=== PATIENT | male | born 1995 | race Two or more races ===

== ENCOUNTER 2019-01-13 11:54 | Inpatient (IN) | payer OTHER ==
--- NOTE | 2019-01-13 14:17 | HP ---
CIWA Score Nausea/Vomitin Muscle Tremors: 3 Anxiety: 2 Agitation: 2 Paroxysmal Sweats: 1-Minimal Palms Moist Orientation: 0-Oriented Tacttile Disturbances: 1-Very Mild Itch/Numbness Auditory Disturbances: 0-None Visual Disturbances: 0-None Headache: 2-Mild CIWA-Ar Total Score: 13 - Admission Criteria OASAS Guidelines: Admission for Medically Managed Detox: Requires at least one of the followin. CIWA greater than 12 2. Seizures within the past 24 hours 3. Delirium tremens within the past 24 hours 4. Hallucinations within the past 24 hours 5. Acute intervention needed for co occurring medical disorder 6. Acute intervention needed for co occurring psychiatric disorder 7. Severe withdrawal that cannot be handled at a lower level of care (continued vomiting, continued diarrhea, abnormal vital signs) requiring intravenous medication and/or fluids 8. Admission ROS [facility] - HPI Chief Complaint: i need help to stop drinking alcohol and marijuana Allergies/Adverse Reactions: Allergies Allergy/AdvReac Type Severity Reaction Status Date / Time latex Allergy Severe Swelling Verified 01/13/19 12:47 History of Present Illness: this 23 years old male with alcohol and marijuana dependence,seeking help to stop drinking,[place], syncope alcohol related abrasion of right knee ,right elbow denied seizure stated have been drinking heavy for last 4 to 5 days personality disorder did not take medication for 3 months never been in detox before asthma history of alap by pass surgery Exam Limitations: No Limitations - Ebola screening Have you traveled outside of the country in the last 21 days: No Have you had contact with anyone from an Ebola affected area: No - Review of Systems Constitutional: Loss of Appetite, Malaise, Night Sweats, Changes in sleep EENT: reports: Nose Congestion Respiratory: reports: No Symptoms reported, Other (asthma) Cardiac: reports: No Symptoms Reported GI: reports: Diarrhea, Nausea, Poor Appetite, Abdominal cramping : reports: No Symptoms Reported Musculoskeletal: reports: Back Pain, Muscle Pain Integumentary: reports: Dryness Neuro: reports: Headache, Tremors Endocrine: reports: No Symptoms Reported Hematology: reports: No Symptoms Reported Psychiatric: reports: No Sypmtoms Reported, Judgement Intact, Mood/Affect Appropiate, Orientated x3, other (personality disorder) Patient History - Patient Medical History Hx Anemia: No Hx Asthma: No Hx Chronic Obstructive Pulmonary Disease (COPD): No Hx Cancer: No Hx Cardiac Disorders: No Hx Congestive Heart Failure: No Hx Hypertension: No Hx Hypercholesterolemia: No Hx Pacemaker: No HX Cerebrovascular Accident: No Hx Seizures: No Hx Dementia: No Hx Diabetes: No Hx Gastrointestinal Disorders: No Hx Liver Disease: No Hx Genitourinary Disorders: No Hx Sexually Transmitted Disorders: No Hx Renal Disease (ESRD): No Hx Thyroid Disease: No Hx Human Immunodeficiency Virus (HIV): No (last 11/17 negative) Hx Hepatitis C: No Hx Depression: Yes (no med) Hx Suicide Attempt: No Hx Bipolar Disorder: No Hx Schizophrenia: No Other Medical History: ersonality disorder,no suicidal,no homicidal - Patient Surgical History Past Surgical History: Yes Hx Abdominal Surgery: Yes (lap 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/20/17) - PPD History Previous Implant?: Yes Documented Results: Negative w/o proof Implanted On Prior [facility] Admission?: No PPD to be Administered?: No - Smoking Cessation Smoking history: Never smoked - Substance & Tx. History Hx Alcohol Use: Yes Hx Substance Use: Yes Substance Use Type: Alcohol, Marijuana Hx Substance Use Treatment: No - Substances abused Alcohol Substance route: Oral Frequency: Daily Amount used: 1 bottle of vodka and 1 (12) pack of beer 16oz Age of first use: 22 Date of last use: 01/13/19 Marijuana/Hashish Substance route: Smoking Frequency: 1-3 times last 30 days Amount used: 25$ Age of first use: 19 Date of last use: 11/25/18 Family Disease History - Family Disease History Family Disease History: Heart Disease: Father (htn,), Other: Mother (alcohol, asthma) Admission Physical Exam S - Vital Signs Vital Signs: Vital Signs - 24 hr 01/13/19 01/13/19 12:41 14:05 Temperature 97.1 F L 97.1 F L Pulse Rate 88 88 Respiratory 16 16 Rate Blood Pressure 139/86 139/86 - Physical General Appearance: Yes: Moderate Distress, Tremorous, Irritable, Sweating, Anxious HEENTM: Yes: Normal ENT Inspection, DEVEN, Pharynx Normal Respiratory: Yes: Lungs Clear, Normal Breath Sounds, No Respiratory Distress Neck: Yes: Within Normal Limits, Supple, Trachea in good position Breast: Yes: Within Normal Limits Cardiology: Yes: Within Normal Limits, Regular Rhythm, Regular Rate, S1, S2 Abdominal: Yes: Within Normal Limits, Normal Bowel Sounds, Soft, Surgical Scar Genitourinary: Yes: Within Normal Limits Back: Yes: Muscle Spasm Musculoskeletal: Yes: Back pain, Muscle Pain Extremities: Yes: Tremors Neurological: Yes: community organizer II-XII NML intact, Alert, Motor Strength 5/5 Integumentary: Yes: Dry, Other (tattooes left forearm abrasion of right knee , right elbow) - Diagnostic (1) Alcohol dependence with uncomplicated withdrawal Current Visit: Yes Status: Acute (2) Syncope Current Visit: Yes Status: Acute (3) Abrasion of right elbow Current Visit: Yes Status: Acute (4) Abrasion of right knee Current Visit: Yes Status: Acute (5) Personality disorder Current Visit: Yes Status: Acute (6) History of gastric bypass Current Visit: Yes Status: Acute Cleared for Admission S - Detox or Rehab [facility] Level of Care: Medically Managed Detox Regimen/Protocol: Librium Breathalyzer - Breathalyzer Breathalyzer: 0 Urine Drug Screen - Test Device Lot number: [id number] Expiration date: 09/29/19 - Results Drug screen NEGATIVE: No Urine drug screen results: THC-Marijuana Inpatient Rehab Admission - Rehab Decision to Admit Inpatient rehab admission?: No
[2019-01-13] MEDS ORDERED: MAG HYDROX/AL HYDROX/SIMETH 30 ML UNIT-DOSE CUP PO PRN (14:31)
[2019-01-13] MEDS ORDERED: BISMUTH SUBSALICYLATE 262 MG/15 ML BTL PO PRN (14:31)
[2019-01-13] MEDS ORDERED: METHOCARBAMOL 500 MG TABLET PO PRN (14:31)
[2019-01-13] MEDS ORDERED: MAGNESIUM HYDROX 2400MG/30ML ORAL SUSPENSION 30 ML CUP PO PRN (14:31)
[2019-01-13] MEDS ORDERED: hydrOXYzine HCL 25 MG TABLET (FP) PO PRN (14:31)
[2019-01-13] MEDS ORDERED: MAGNESIUM CITRATE 300 ML BOTTLE PO PRN (14:31)
[2019-01-13] MEDS ORDERED: IBUPROFEN 400 MG TABLET (FP) PO PRN (14:31)
[2019-01-13] MEDS ORDERED: ACETAMINOPHEN 325 MG TABLET (FP) PO PRN ×2 (14:31)
[2019-01-13] MEDS ORDERED: MENTHOL/PHENOL 1 EACH UD MM PRN (14:31)
[2019-01-13] MEDS ORDERED: chlordiazePOXIDE HCL 10 MG CAPSULE PO PRN (14:31)
[2019-01-13 17:13] LABS: ALBUMIN 3.8 g/dl (3.4-5.0); BILIRUBIN,TOTAL 0.7 mg/dL (0.2-1); BLOOD UREA NITROGEN 9.6 mg/dL (7-18); CALCIUM 9.2 mg/dL (8.5-10.1); CREATININE 0.9 mg/dL (0.55-1.3); POTASSIUM 4.2 mmol/L (3.5-5.1); TOT PROT 7.4 g/dl (6.4-8.2)
[2019-01-13 17:21] LABS: HEMATOCRIT 46.1 % (35.4-49); HEMOGLOBIN 15.7 GM/dL (11.7-16.9); MCH 30.6 pg (25.7-33.7); MCHC 34.1 g/dl (32.0-35.9); MEAN CELL VOLUME 89.8 fl (80-96); PLATELET COUNT 293 K/MM3 (134-434); RBC 5.13 M/mm3 (4.00-5.60); WHITE BLOOD COUNT 5.4 K/mm3 (4.0-10.0)
[2019-01-13] MEDS: MELATONIN 5 MG TABLETS PO PRN (22:09)
[2019-01-13] MEDS: THIAMINE HCL 100 MG TABLET (FP) PO SCH (22:09)
[2019-01-13] MEDS: chlordiazePOXIDE HCL 25 MG CAPSULE PO SCH (22:09)
[2019-01-13] MEDS: BACITRACIN 15 GM TUBE TOPICAL OINTMENT TP SCH (22:11)
[2019-01-14] MEDS: chlordiazePOXIDE HCL 25 MG CAPSULE PO SCH ×3 (05:32→17:08)
[2019-01-14] MEDS ORDERED: chlordiazePOXIDE HCL 10 MG CAPSULE PO PRN (09:57)
[2019-01-14] MEDS: PRENATAL VITAMINS W/ FOLIC ACID TABLET (FP) PO SCH (10:08)
[2019-01-14] MEDS: BACITRACIN 15 GM TUBE TOPICAL OINTMENT TP SCH ×2 (10:08→22:29)
[2019-01-14] MEDS: RANITIDINE HCL 150 MG TABLET (FP) PO SCH ×2 (10:08→21:56)
--- NOTE | 2019-01-14 11:30 | EKG ---
Test Reason : Blood Pressure : / mmHG Vent. Rate : 057 BPM Atrial Rate : 057 BPM P-R Int : 164 ms QRS Dur : 092 ms QT Int : 382 ms P-R-T Axes : 059 063 053 degrees QTc Int : 371 ms SINUS BRADYCARDIA EARLY REPOLARIZATION NO PREVIOUS ECGS AVAILABLE Confirmed by MELLY GILMAN MD ([id number]) on 01/14/2019 11:29:52 AM Referred By: Confirmed By:MELLY GILMAN MD
--- NOTE | 2019-01-14 14:36 | CONSULT ---
[facility] Psychiatric Consult - Data Date of interview: 01/14/19 Admission source: [facility] Identifying data: First admission to [facility] for this 23 y/o Georgian- Marshallese male self-referred for detoxification (alcohol). Interviewed at [address] [place] [address]. Patient is single, no children, domiciled, unemployed and supported by relatives. Substance Abuse History: Confirmed by patient. Details in current [facility] report as follows : Smoking history: Never smoked. Substance & Tx. History. Hx Alcohol Use: Yes. Hx Substance Use: Yes. Substance Use Type: Alcohol, Marijuana. Hx Substance Use Treatment: No. - Substances abused. Alcohol. Substance route : Oral. Frequency: Daily. Amount used: 1 bottle of vodka and 1 (12) pack of beer 16oz. Age of first use: 22. Date of last use: 01/13/19. Marijuana/ Hashish. Substance route: Smoking. Frequency: 1-3 times last 30 days. Amount used: 25$. Age of first use: 19. Date of last use: 11/25/18 Medical History: Bronchial asthma, history of gastric bypass and herniorraphy ( 2017). Psychiatric History: No reported history of psychiatric hospitalizations. Patient states that he sees a psychiatrist, Dr Matthew, at a mental health clinic in the [place] for therapy + medication management (risperdal 0.5 mg/hs). Diagnosed with Mood Disorder NOS. Mr Benton reports that he has NOT taken his dose of risperdal for THREE months (does not wish to resume that medication during this hospital course). Denies history of suicide attempts. Physical/Sexual Abuse/Trauma History: No history of abuse. Additional Comment: Urine drug screen results: THC-Marijuana. Noted. Mental Status Exam - Mental Status Exam Alert and Oriented to: Time, Place, Person Cognitive Function: Good Patient Appearance: Well Groomed Mood: Hopeful, Euthymic Affect: Appropriate, Normal Range Patient Behavior: Appropriate, Cooperative Speech Pattern: Clear, Appropriate (austrian-fluent) Voice Loudness: Normal Thought Process: Intact, Goal Oriented Thought Disorder: Not Present Hallucinations: Denies Suicidal Ideation: Denies Homicidal Ideation: Denies Insight/Judgement: Poor Sleep: Well Appetite: Good Muscle strength/Tone: Normal Gait/Station: Normal Psychiatric Findings - Problem List ([place] 1, 2,3) (1) Alcohol dependence with uncomplicated withdrawal Current Visit: Yes Status: Acute (2) Marihuana dependence Current Visit: Yes Status: Chronic (3) Insomnia Current Visit: Yes Status: Chronic - Initial Treatment Plan Initial Treatment Plan: Psychoeducation. Sleep hygiene. Support. Detoxification. Insomnia is addressed with melatonin at bedtime. Side effects/ benefits discussed. Patient agrees with careplan. Mr Benton declines to resume risperdal. " I am planning to discuss the issue with my psychiatrist after my discharge from here." AA meetings. Counseling. Relapse prevention (MAT) revisited with the patient : expressed limited interest. Observation.
--- NOTE | 2019-01-14 16:41 | PN ---
S CIWA - CIWA Score Nausea/Vomitin (Stomach Cramping.) Muscle Tremors: None Anxiety: 4-Mod. Anxious/Guarded Agitation: 3 Paroxysmal Sweats: No Perspiration Orientation: 0-Oriented Tacttile Disturbances: 2-Mild Itch/Numbness/Burn Auditory Disturbances: 0-None Visual Disturbances: 0-None Headache: 2-Mild CIWA-Ar Total Score: 13 S Progress Note (SOAP) Subjective: Anxious, Stomach Discomfort, H/A. Objective: PATIENT A & O X 3, OBSERVED AMBULATING ON UNIT UNASSISTED. IN NO ACUTE DISTRESS. 01/14/19 16:42 Vital Signs Temperature 97.5 F L 01/14/19 13:32 Pulse Rate 84 01/14/19 13:32 Respiratory Rate 16 01/14/19 13:32 Blood Pressure 114/76 01/14/19 13:32 O2 Sat by Pulse Oximetry (%) Laboratory Tests 01/13/19 01/13/19 01/13/19 14:20 14:20 14:20 WBC 5.4 RBC 5.13 Hgb 15.7 Hct 46.1 MCV 89.8 MCH 30.6 MCHC 34.1 RDW 14.0 Plt Count 293 MPV 9.0 Sodium 139 Potassium 4.2 Chloride 101 Carbon Dioxide 30 Anion Gap 8 BUN 9.6 Creatinine 0.9 Est GFR (CKD-EPI)AfAm 141.01 Est GFR (CKD-EPI)NonAf 121.66 Random Glucose 67 L Calcium 9.2 Total Bilirubin 0.7 AST 28 ALT 25 Alkaline Phosphatase 160 H Total Protein 7.4 Albumin 3.8 RPR Titer Nonreactive HIV 1&2 Antibody Screen HIV P24 Antigen 01/13/19 14:20 WBC RBC Hgb Hct MCV MCH MCHC RDW Plt Count MPV Sodium Potassium Chloride Carbon Dioxide Anion Gap BUN Creatinine Est GFR (CKD-EPI)AfAm Est GFR (CKD-EPI)NonAf Random Glucose Calcium Total Bilirubin AST ALT Alkaline Phosphatase Total Protein Albumin RPR Titer HIV 1&2 Antibody Screen Cancelled HIV P24 Antigen Cancelled LABS NOTED. RESULTS OF DETOX ADMISSION QFT /TB AND OF HIV AB TESTS PENDING. 01/14/19 16:42 Assessment: 01/14/19 16:43 WITHDRAWAL SYMPTOMS. ELEVATED ALKALINE PHOSPHATASE LEVEL. 01/14/19 16:44 Plan: CONTINUE DETOX. INCREASE DAILY PO WATER INTAKE. ZANTAC PO FOR POSSIBLE ACID REFLUX CAUSING STOMACH DISCOMFORT.
[2019-01-14] MEDS: THIAMINE HCL 100 MG TABLET (FP) PO SCH (21:56)
[2019-01-14] MEDS: MELATONIN 5 MG TABLETS PO PRN (21:57)
[2019-01-15] MEDS ORDERED: chlordiazePOXIDE 5 MG CAPSULE PO SCH (05:00)
[2019-01-15] MEDS: chlordiazePOXIDE 5 MG CAPSULE PO SCH ×3 (05:26→22:21)
[2019-01-15] MEDS: RANITIDINE HCL 150 MG TABLET (FP) PO SCH ×2 (10:40→22:34)
[2019-01-15] MEDS: PRENATAL VITAMINS W/ FOLIC ACID TABLET (FP) PO SCH (10:40)
[2019-01-15] MEDS: BACITRACIN 15 GM TUBE TOPICAL OINTMENT TP SCH ×2 (10:41→22:20)
[2019-01-15] MEDS: SENNOSIDES/DOCUSATE COMBO (SENNA PLUS) TABLET (UD) PO SCH ×2 (13:37→22:20)
--- NOTE | 2019-01-15 15:47 | PN ---
[facility] CIWA - CIWA Score Nausea/Vomitin-No Nausea/No Vomiting Muscle Tremors: None Anxiety: 4-Mod. Anxious/Guarded Agitation: 3 Paroxysmal Sweats: No Perspiration Orientation: 0-Oriented Tacttile Disturbances: 1-Very Mild Itch/Numbness Auditory Disturbances: 0-None Visual Disturbances: 2-Mild Sensitivity Headache: 0-None Present CIWA-Ar Total Score: 10 S Progress Note (SOAP) Subjective: Constipation, Anxious, Restless. Patient Reports That Stomach Discomfort reported at time of yesterday's Daily AM Rounds assessment has subsided. Objective: PATIENT A & O X 3, OBSERVED AMBULATING ON UNIT UNASSISTED. IN NO ACUTE DISTRESS. 01/15/19 15:44 Vital Signs Temperature 97.7 F 01/15/19 09:49 Pulse Rate 75 01/15/19 09:49 Respiratory Rate 20 01/15/19 09:49 Blood Pressure 122/73 01/15/19 09:49 O2 Sat by Pulse Oximetry (%) Laboratory Tests 01/13/19 01/13/19 01/13/19 14:20 14:20 14:20 WBC 5.4 RBC 5.13 Hgb 15.7 Hct 46.1 MCV 89.8 MCH 30.6 MCHC 34.1 RDW 14.0 Plt Count 293 MPV 9.0 Sodium 139 Potassium 4.2 Chloride 101 Carbon Dioxide 30 Anion Gap 8 BUN 9.6 Creatinine 0.9 Est GFR (CKD-EPI)AfAm 141.01 Est GFR (CKD-EPI)NonAf 121.66 Random Glucose 67 L Calcium 9.2 Total Bilirubin 0.7 AST 28 ALT 25 Alkaline Phosphatase 160 H Total Protein 7.4 Albumin 3.8 RPR Titer Nonreactive HIV 1&2 Ag/Ab, 4th Gen HIV 1&2 Antibody Screen HIV P24 Antigen 01/13/19 01/14/19 14:20 10:00 WBC RBC Hgb Hct MCV MCH MCHC RDW Plt Count MPV Sodium Potassium Chloride Carbon Dioxide Anion Gap BUN Creatinine Est GFR (CKD-EPI)AfAm Est GFR (CKD-EPI)NonAf Random Glucose Calcium Total Bilirubin AST ALT Alkaline Phosphatase Total Protein Albumin RPR Titer HIV 1&2 Ag/Ab, 4th Gen Non reactive HIV 1&2 Antibody Screen Cancelled HIV P24 Antigen Cancelled LABS NOTED. RESULTS OF DETOX ADMISSION QFT /TB TEST PENDING. 01/15/19 15:45 Assessment: 01/15/19 15:44 WITHDRAWAL SYMPTOMS. ELEVATED ALKALINE PHOSPHATASE LEVEL. 01/15/19 15:46 Plan: CONTINUE DETOX. COLACE SENNA PO BID ORDERED FOR RELIEF OF CONSTIPATION (PATIENT REPORTS POOR EFFECT FROM MOM). INCREASE DAILY PO WATER INTAKE.
[2019-01-15] MEDS: MELATONIN 5 MG TABLETS PO PRN (22:21)
[2019-01-15] MEDS: THIAMINE HCL 100 MG TABLET (FP) PO SCH (22:21)
[2019-01-16] MEDS ORDERED: chlordiazePOXIDE HCL 10 MG CAPSULE PO PRN ×2
[2019-01-16] MEDS ORDERED: chlordiazePOXIDE HCL 10 MG CAPSULE PO SCH (05:00)
[2019-01-16] MEDS: chlordiazePOXIDE HCL 10 MG CAPSULE PO SCH ×3 (06:44→22:08)
[2019-01-16] MEDS: PRENATAL VITAMINS W/ FOLIC ACID TABLET (FP) PO SCH (10:11)
[2019-01-16] MEDS: SENNOSIDES/DOCUSATE COMBO (SENNA PLUS) TABLET (UD) PO SCH ×2 (10:12→22:08)
[2019-01-16] MEDS: BACITRACIN 15 GM TUBE TOPICAL OINTMENT TP SCH ×2 (10:12→22:08)
[2019-01-16] MEDS: RANITIDINE HCL 150 MG TABLET (FP) PO SCH ×2 (11:27→22:25)
--- NOTE | 2019-01-16 14:57 | PN ---
S CIWA - CIWA Score Nausea/Vomitin-No Nausea/No Vomiting Muscle Tremors: 2 Anxiety: 2 Agitation: 2 Paroxysmal Sweats: No Perspiration Orientation: 0-Oriented Tacttile Disturbances: 0-None Auditory Disturbances: 0-None Visual Disturbances: 0-None Headache: 0-None Present CIWA-Ar Total Score: 6 BHS Progress Note (SOAP) Subjective: 23 years old male admitted on 01/13/19 for acute alcohol withdrawal sx management doing well with librium detox regimen hesitating to discuss aftercare Objective: 01/16/19 14:58 Vital Signs Temperature 98.8 F 01/16/19 14:48 Pulse Rate 63 01/16/19 14:48 Respiratory Rate 16 01/16/19 14:48 Blood Pressure 117/66 01/16/19 14:48 O2 Sat by Pulse Oximetry (%) Laboratory Last Values WBC 5.4 K/mm3 (4.0-10.0) 01/13/19 14:20 RBC 5.13 M/mm3 (4.00-5.60) 01/13/19 14:20 Hgb 15.7 GM/dL (11.7-16.9) 01/13/19 14:20 Hct 46.1 % (35.4-49) 01/13/19 14:20 MCV 89.8 fl (80-96) 01/13/19 14:20 MCH 30.6 pg (25.7-33.7) 01/13/19 14:20 MCHC 34.1 g/dl (32.0-35.9) 01/13/19 14:20 RDW 14.0 % (11.9-15.9) 01/13/19 14:20 Plt Count 293 K/MM3 (134-434) 01/13/19 14:20 MPV 9.0 fl (7.5-11.1) 01/13/19 14:20 Sodium 139 mmol/L (136-145) 01/13/19 14:20 Potassium 4.2 mmol/L (3.5-5.1) 01/13/19 14:20 Chloride 101 mmol/L (98-107) 01/13/19 14:20 Carbon Dioxide 30 mmol/L (21-32) 01/13/19 14:20 Anion Gap 8 MMOL/L (8-16) 01/13/19 14:20 BUN 9.6 mg/dL (7-18) 01/13/19 14:20 Creatinine 0.9 mg/dL (0.55-1.3) 01/13/19 14:20 Est GFR (CKD-EPI)AfAm 141.01 01/13/19 14:20 Est GFR (CKD-EPI)NonAf 121.66 01/13/19 14:20 Random Glucose 67 mg/dL (74-106) L 01/13/19 14:20 Calcium 9.2 mg/dL (8.5-10.1) 01/13/19 14:20 Total Bilirubin 0.7 mg/dL (0.2-1) 01/13/19 14:20 AST 28 U/L (15-37) 01/13/19 14:20 ALT 25 U/L (13-61) 01/13/19 14:20 Alkaline Phosphatase 160 U/L (45-117) H 01/13/19 14:20 Total Protein 7.4 g/dl (6.4-8.2) 01/13/19 14:20 Albumin 3.8 g/dl (3.4-5.0) 01/13/19 14:20 RPR Titer Nonreactive (NONREACTIVE) 01/13/19 14:20 HIV 1&2 Ag/Ab, 4th Gen Non reactive (Non Reactive) 01/14/19 10:00 HIV 1&2 Antibody Screen Cancelled 01/13/19 14:20 HIV P24 Antigen Cancelled 01/13/19 14:20 lab noted Assessment: 01/16/19 14:58 alcohol withdrawal sx alert oriented x 3 01/16/19 14:59 social with peers in day room Plan: continue libirun detox regimen
[2019-01-16] MEDS: THIAMINE HCL 100 MG TABLET (FP) PO SCH (22:07)
[2019-01-16] MEDS: MELATONIN 5 MG TABLETS PO PRN (22:09)
[2019-01-17] MEDS ORDERED: chlordiazePOXIDE HCL 10 MG CAPSULE PO ONE ×2 (05:00)
[2019-01-17] MEDS: SENNOSIDES/DOCUSATE COMBO (SENNA PLUS) TABLET (UD) PO SCH (10:08)
[2019-01-17] MEDS: PRENATAL VITAMINS W/ FOLIC ACID TABLET (FP) PO SCH (10:08)
[2019-01-17] MEDS: BACITRACIN 15 GM TUBE TOPICAL OINTMENT TP SCH (10:08)
[2019-01-17] MEDS: RANITIDINE HCL 150 MG TABLET (FP) PO SCH (10:09)
--- NOTE | 2019-01-17 12:41 | DS ---
[facility] Detox Discharge Summary Admission Date: 01/13/19 Discharge Date: 01/17/19 - History Present History: Alcohol Dependence Additional Comments: 23 years old male admitted on 01/13/19 for acute alcohol withdrawal sx management doing well with librium detox regimen no complication through out the detox stay alert oriented x 3 S1S2 Regular clear lung bilaterally - Physical Exam Results Vital Signs: Vital Signs Temperature 98.1 F 01/17/19 09:07 Pulse Rate 91 H 01/17/19 09:07 Respiratory Rate 20 01/17/19 09:07 Blood Pressure 116/72 01/17/19 09:07 O2 Sat by Pulse Oximetry (%) Pertinent Admission Physical Exam Findings: alcohol withdrawal sx Laboratory Last Values WBC 5.4 K/mm3 (4.0-10.0) 01/13/19 14:20 RBC 5.13 M/mm3 (4.00-5.60) 01/13/19 14:20 Hgb 15.7 GM/dL (11.7-16.9) 01/13/19 14:20 Hct 46.1 % (35.4-49) 01/13/19 14:20 MCV 89.8 fl (80-96) 01/13/19 14:20 MCH 30.6 pg (25.7-33.7) 01/13/19 14:20 MCHC 34.1 g/dl (32.0-35.9) 01/13/19 14:20 RDW 14.0 % (11.9-15.9) 01/13/19 14:20 Plt Count 293 K/MM3 (134-434) 01/13/19 14:20 MPV 9.0 fl (7.5-11.1) 01/13/19 14:20 Sodium 139 mmol/L (136-145) 01/13/19 14:20 Potassium 4.2 mmol/L (3.5-5.1) 01/13/19 14:20 Chloride 101 mmol/L (98-107) 01/13/19 14:20 Carbon Dioxide 30 mmol/L (21-32) 01/13/19 14:20 Anion Gap 8 MMOL/L (8-16) 01/13/19 14:20 BUN 9.6 mg/dL (7-18) 01/13/19 14:20 Creatinine 0.9 mg/dL (0.55-1.3) 01/13/19 14:20 Est GFR (CKD-EPI)AfAm 141.01 01/13/19 14:20 Est GFR (CKD-EPI)NonAf 121.66 01/13/19 14:20 Random Glucose 67 mg/dL (74-106) L 01/13/19 14:20 Calcium 9.2 mg/dL (8.5-10.1) 01/13/19 14:20 Total Bilirubin 0.7 mg/dL (0.2-1) 01/13/19 14:20 AST 28 U/L (15-37) 01/13/19 14:20 ALT 25 U/L (13-61) 01/13/19 14:20 Alkaline Phosphatase 160 U/L (45-117) H 01/13/19 14:20 Total Protein 7.4 g/dl (6.4-8.2) 01/13/19 14:20 Albumin 3.8 g/dl (3.4-5.0) 01/13/19 14:20 RPR Titer Nonreactive (NONREACTIVE) 01/13/19 14:20 HIV 1&2 Ag/Ab, 4th Gen Non reactive (Non Reactive) 01/14/19 10:00 HIV 1&2 Antibody Screen Cancelled 01/13/19 14:20 HIV P24 Antigen Cancelled 01/13/19 14:20 lab noted - Treatment Hospital Course: Detox Protocol Followed, Detoxed Safely, Responded well, Discharged Condition Good, Rehab Referral Accepted Patient has Accepted [facility] - Medication Discharge Medications: Ambulatory Orders NK [No Known Home Medication] 01/13/19 Risperidone [Risperdal -] 1 mg PO DAILY 01/13/19 - Diagnosis (1) GERD (gastroesophageal reflux disease) Current Visit: Yes Status: Chronic Qualifiers: Esophagitis presence: without esophagitis Qualified Code(s): K21.9 - Gastro -esophageal reflux disease without esophagitis (2) Abrasion of skin Current Visit: Yes Status: Acute (3) Alcohol dependence with uncomplicated withdrawal Current Visit: Yes Status: Acute - AMA Did Patient Leave Against Medical Advice: No
[2019-01-17 17:11] LABS: PH,URINE 7.5 (5.0-8.0); URINE APPEARANCE CLEAR; URINE BILIRUBIN NEGATIVE (NEGATIVE); URINE COLOR YELLOW; URINE GLUCOSE (UA) NEGATIVE (NEGATIVE); URINE KETONE NEGATIVE (NEGATIVE); URINE LEUK ESTERASE NEGATIVE (NEGATIVE); URINE NITRITE NEGATIVE (NEGATIVE); URINE PROTEIN NEGATIVE (NEGATIVE)
[2019-01-17 17:28] VITALS: BP 113/69; PULSE 67; TEMP 97.3
== END 2019-01-17 18:10 | disposition other institution (70) | DRG 775 ==
LOC: YASAS 11:54 → Y3N 14:47
PROVIDERS: ADMIT Surgery; ATTEND Surgery
PROC: HZ2ZZZZ Detoxification Services for Substance Abuse Treatment (ICD-10-PCS; principal; 2019-01-13)
DX: F10.230 Alcohol dependence with withdrawal, uncomplicated (principal); F12.20 Cannabis dependence, uncomplicated; F60.9 Personality disorder, unspecified; K21.9 Gastro-esophageal reflux disease without esophagitis; R74.0 Nonspecific elevation of levels of transaminase and lactic acid dehydrogenase [LDH]; G47.00 Insomnia, unspecified; Z98.84 Bariatric surgery status
CPT/HCPCS: 36415; 80053; 81003; 85027; 86480; 86593; 87389; 93005; 93010

== ENCOUNTER 2019-01-17 18:14 | Inpatient (IN) | payer OTHER ==
--- NOTE | 2019-01-17 12:49 | HP ---
[facility] Rehab Assess/Revision - Admission History Admitted to Rehab from: [facility] Date of Admission to Rehab: 01/17/19 - Findings Detox History & Physical reviewed: Yes Concur with findings: Yes Comments/Additional Findings: transferred from detox to rehab admission as per protocol Inpatient Rehab Admission - Rehab Decision to Admit Inpatient rehab admission?: Yes - Initial Determination Are CD services needed?: Yes Free of communicable disease: Yes Not in need of hospitalization: Yes - Rehab Admission Criteria Previous failed treatment: Yes Poor recovery environment: Yes Comorbidities: Yes Lacks judgement: No Patient is meeting Inpatient Rehab admission criteria:: Yes
[~2019-01-17 18:14] MED LIST: ACETAMINOPHEN 325 MG TABLET (FP) PO PRN; LOPERAMIDE HCL 2 MG CAPSULE PO PRN; MAG HYDROX/AL HYDROX/SIMETH 30 ML UNIT-DOSE CUP PO PRN; MAGNESIUM CITRATE 300 ML BOTTLE PO PRN; MAGNESIUM HYDROX 2400MG/30ML ORAL SUSPENSION 30 ML CUP PO PRN; MENTHOL/PHENOL 1 EACH UD MM PRN; P-EPHED 60MG/TRIPROLIDI 2.5MG TABLET PO PRN; guaiFENesin 200 MG/10 ML 10 ML UNIT-DOSE CUPS PO PRN
[2019-01-17] MEDS: THIAMINE HCL 100 MG TABLET (FP) PO SCH (21:24)
[2019-01-17] MEDS: RANITIDINE HCL 150 MG TABLET (FP) PO SCH (21:24)
[2019-01-17] MEDS: MELATONIN 5 MG TABLETS PO PRN (21:25)
[2019-01-17] MEDS: BACITRACIN 15 GM TUBE TOPICAL OINTMENT TP SCH (22:09)
[2019-01-17] MEDS: SENNOSIDES/DOCUSATE COMBO (SENNA PLUS) TABLET (UD) PO SCH (22:10)
[2019-01-18] MEDS: BACITRACIN 15 GM TUBE TOPICAL OINTMENT TP SCH ×2 (09:48→21:32)
[2019-01-18] MEDS: PRENATAL VITAMINS W/ FOLIC ACID TABLET (FP) PO SCH (09:48)
[2019-01-18] MEDS: SENNOSIDES/DOCUSATE COMBO (SENNA PLUS) TABLET (UD) PO SCH ×2 (09:48→21:31)
[2019-01-18] MEDS: RANITIDINE HCL 150 MG TABLET (FP) PO SCH ×2 (09:48→21:30)
[2019-01-18] MEDS: THIAMINE HCL 100 MG TABLET (FP) PO SCH (21:30)
[2019-01-18] MEDS: MELATONIN 5 MG TABLETS PO PRN (21:30)
[2019-01-19] MEDS: RANITIDINE HCL 150 MG TABLET (FP) PO SCH ×2 (10:06→21:59)
[2019-01-19] MEDS: PRENATAL VITAMINS W/ FOLIC ACID TABLET (FP) PO SCH (10:06)
[2019-01-19] MEDS: BACITRACIN 15 GM TUBE TOPICAL OINTMENT TP SCH ×2 (10:06→21:59)
[2019-01-19] MEDS: SENNOSIDES/DOCUSATE COMBO (SENNA PLUS) TABLET (UD) PO SCH ×2 (10:06→21:59)
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
[2019-01-19] MEDS ORDERED: MELATONIN 5 MG TABLETS PO PRN (14:32)
[2019-01-19] MEDS: MELATONIN 5 MG TABLETS PO PRN (21:59)
[2019-01-19] MEDS: THIAMINE HCL 100 MG TABLET (FP) PO SCH (21:59)
[2019-01-20] MEDS: BACITRACIN 15 GM TUBE TOPICAL OINTMENT TP SCH ×2 (09:20→21:19)
[2019-01-20] MEDS: PRENATAL VITAMINS W/ FOLIC ACID TABLET (FP) PO SCH (09:20)
[2019-01-20] MEDS: SENNOSIDES/DOCUSATE COMBO (SENNA PLUS) TABLET (UD) PO SCH ×2 (09:20→22:06)
[2019-01-20] MEDS: RANITIDINE HCL 150 MG TABLET (FP) PO SCH ×2 (09:20→21:20)
[2019-01-20] MEDS: THIAMINE HCL 100 MG TABLET (FP) PO SCH (21:19)
[2019-01-20] MEDS: risperiDONE 0.5 MG TABLET (FP) PO SCH (21:20)
[2019-01-20] MEDS: MELATONIN 5 MG TABLETS PO PRN (21:22)
[2019-01-21] MEDS: PRENATAL VITAMINS W/ FOLIC ACID TABLET (FP) PO SCH (09:43)
[2019-01-21] MEDS: RANITIDINE HCL 150 MG TABLET (FP) PO SCH ×2 (09:43→21:40)
[2019-01-21] MEDS: BACITRACIN 15 GM TUBE TOPICAL OINTMENT TP SCH ×2 (09:44→21:41)
[2019-01-21] MEDS: SENNOSIDES/DOCUSATE COMBO (SENNA PLUS) TABLET (UD) PO SCH ×2 (09:44→21:41)
[2019-01-21] MEDS: THIAMINE HCL 100 MG TABLET (FP) PO SCH (21:40)
[2019-01-21] MEDS: risperiDONE 0.5 MG TABLET (FP) PO SCH (21:40)
[2019-01-21] MEDS: MELATONIN 5 MG TABLETS PO PRN (21:41)
[2019-01-22] MEDS: SENNOSIDES/DOCUSATE COMBO (SENNA PLUS) TABLET (UD) PO SCH ×2 (10:35→21:44)
[2019-01-22] MEDS: PRENATAL VITAMINS W/ FOLIC ACID TABLET (FP) PO SCH (10:35)
[2019-01-22] MEDS: BACITRACIN 15 GM TUBE TOPICAL OINTMENT TP SCH ×2 (10:35→21:43)
[2019-01-22] MEDS: RANITIDINE HCL 150 MG TABLET (FP) PO SCH ×2 (10:35→21:44)
[2019-01-22] MEDS: THIAMINE HCL 100 MG TABLET (FP) PO SCH (21:43)
[2019-01-22] MEDS: risperiDONE 0.5 MG TABLET (FP) PO SCH (21:44)
[2019-01-22] MEDS: MELATONIN 5 MG TABLETS PO PRN (21:44)
[2019-01-23] MEDS: BACITRACIN 15 GM TUBE TOPICAL OINTMENT TP SCH ×2 (09:46→21:43)
[2019-01-23] MEDS: SENNOSIDES/DOCUSATE COMBO (SENNA PLUS) TABLET (UD) PO SCH ×2 (09:46→21:42)
[2019-01-23] MEDS: PRENATAL VITAMINS W/ FOLIC ACID TABLET (FP) PO SCH (09:47)
[2019-01-23] MEDS: RANITIDINE HCL 150 MG TABLET (FP) PO SCH ×2 (09:47→22:46)
[2019-01-23] MEDS: MELATONIN 5 MG TABLETS PO PRN (21:41)
[2019-01-23] MEDS: risperiDONE 0.5 MG TABLET (FP) PO SCH (21:41)
[2019-01-23] MEDS: THIAMINE HCL 100 MG TABLET (FP) PO SCH (21:43)
[2019-01-24] MEDS ORDERED: PT OWN MED DRAWER 7, Y5N ONE (09:33)
[2019-01-24] MEDS: PRENATAL VITAMINS W/ FOLIC ACID TABLET (FP) PO SCH (10:00)
[2019-01-24] MEDS: SENNOSIDES/DOCUSATE COMBO (SENNA PLUS) TABLET (UD) PO SCH ×2 (10:00→21:33)
[2019-01-24] MEDS: BACITRACIN 15 GM TUBE TOPICAL OINTMENT TP SCH ×2 (10:01→21:34)
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
[2019-01-24] MEDS: RANITIDINE HCL 150 MG TABLET (FP) PO SCH ×2 (12:40→21:32)
[2019-01-24] MEDS: risperiDONE 0.5 MG TABLET (FP) PO SCH (21:32)
[2019-01-24] MEDS: MELATONIN 5 MG TABLETS PO PRN (21:32)
[2019-01-24] MEDS: THIAMINE HCL 100 MG TABLET (FP) PO SCH (21:32)
[2019-01-25] MEDS ORDERED: PT OWN MED DRAWER 7, Y5N ONE (08:40)
[2019-01-25] MEDS: BACITRACIN 15 GM TUBE TOPICAL OINTMENT TP SCH ×2 (09:42→21:37)
[2019-01-25] MEDS: RANITIDINE HCL 150 MG TABLET (FP) PO SCH ×2 (09:42→21:35)
[2019-01-25] MEDS: SENNOSIDES/DOCUSATE COMBO (SENNA PLUS) TABLET (UD) PO SCH ×2 (09:42→21:35)
[2019-01-25] MEDS: PRENATAL VITAMINS W/ FOLIC ACID TABLET (FP) PO SCH (09:42)
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
[2019-01-25] MEDS: risperiDONE 0.5 MG TABLET (FP) PO SCH (21:35)
[2019-01-25] MEDS: THIAMINE HCL 100 MG TABLET (FP) PO SCH (21:35)
[2019-01-25] MEDS: MELATONIN 5 MG TABLETS PO PRN (21:36)
[2019-01-26] MEDS: PRENATAL VITAMINS W/ FOLIC ACID TABLET (FP) PO SCH (10:02)
[2019-01-26] MEDS: BACITRACIN 15 GM TUBE TOPICAL OINTMENT TP SCH ×2 (10:02→22:35)
[2019-01-26] MEDS: RANITIDINE HCL 150 MG TABLET (FP) PO SCH ×2 (10:02→21:10)
[2019-01-26] MEDS: SENNOSIDES/DOCUSATE COMBO (SENNA PLUS) TABLET (UD) PO SCH ×2 (10:03→21:10)
--- NOTE | 2019-01-26 13:52 | PN ---
[facility] Progress Note Note: Patient complains sleeping poorly despite taking Melatonin 10 mg/hs. Requests to be ordered a stronger medication for sleep. Hypnotic properties of Belsomra discussed with patient and he agreed to try it
[2019-01-26] MEDS: THIAMINE HCL 100 MG TABLET (FP) PO SCH (21:10)
[2019-01-26] MEDS: SUVOREXANT 10 MG TABLET PO PRN (21:10)
[2019-01-26] MEDS: risperiDONE 0.5 MG TABLET (FP) PO SCH (21:10)
[2019-01-27] MEDS: PRENATAL VITAMINS W/ FOLIC ACID TABLET (FP) PO SCH (09:43)
[2019-01-27] MEDS: RANITIDINE HCL 150 MG TABLET (FP) PO SCH ×2 (09:43→21:43)
[2019-01-27] MEDS: SENNOSIDES/DOCUSATE COMBO (SENNA PLUS) TABLET (UD) PO SCH ×2 (09:44→21:43)
[2019-01-27] MEDS: BACITRACIN 15 GM TUBE TOPICAL OINTMENT TP SCH ×2 (09:44→21:44)
[2019-01-27] MEDS ORDERED: COLLOIDAL OATMEAL 1 BAR EACH TP PRN (14:33)
[2019-01-27] MEDS: risperiDONE 0.5 MG TABLET (FP) PO SCH (21:43)
[2019-01-27] MEDS: SUVOREXANT 10 MG TABLET PO PRN (21:43)
[2019-01-27] MEDS: THIAMINE HCL 100 MG TABLET (FP) PO SCH (21:44)
[2019-01-28] MEDS: RANITIDINE HCL 150 MG TABLET (FP) PO SCH ×2 (10:06→21:06)
[2019-01-28] MEDS: PRENATAL VITAMINS W/ FOLIC ACID TABLET (FP) PO SCH (10:06)
[2019-01-28] MEDS: SENNOSIDES/DOCUSATE COMBO (SENNA PLUS) TABLET (UD) PO SCH ×2 (10:06→21:06)
[2019-01-28] MEDS: BACITRACIN 15 GM TUBE TOPICAL OINTMENT TP SCH ×2 (10:08→21:06)
[2019-01-28] MEDS: THIAMINE HCL 100 MG TABLET (FP) PO SCH (21:06)
[2019-01-28] MEDS: risperiDONE 0.5 MG TABLET (FP) PO SCH (21:06)
[2019-01-28] MEDS: SUVOREXANT 10 MG TABLET PO PRN (21:09)
[2019-01-29] MEDS: RANITIDINE HCL 150 MG TABLET (FP) PO SCH ×2 (10:00→21:11)
[2019-01-29] MEDS: PRENATAL VITAMINS W/ FOLIC ACID TABLET (FP) PO SCH (10:00)
[2019-01-29] MEDS: BACITRACIN 15 GM TUBE TOPICAL OINTMENT TP SCH ×2 (10:00→21:10)
[2019-01-29] MEDS: SENNOSIDES/DOCUSATE COMBO (SENNA PLUS) TABLET (UD) PO SCH ×2 (10:00→21:10)
--- NOTE | 2019-01-29 17:31 | PN ---
[facility] Progress Note Note: Psychiatry Attending's note : Called to renew order for suvorexant. Chart reviewed. Patient is known to me. Dr Tran's note of 01/27/19 : appreciated. Medication confirmed as well tolerated + effective. Informed consent already secured. Resumed : belsomra 10 mg po hs prn.
[2019-01-29] MEDS: SUVOREXANT 10 MG TABLET PO PRN (21:10)
[2019-01-29] MEDS: risperiDONE 0.5 MG TABLET (FP) PO SCH (21:11)
[2019-01-29] MEDS: THIAMINE HCL 100 MG TABLET (FP) PO SCH (21:11)
[2019-01-29] MEDS ORDERED: SUVOREXANT 10 MG TABLET PO PRN (22:00)
[2019-01-30] MEDS: PRENATAL VITAMINS W/ FOLIC ACID TABLET (FP) PO SCH (10:05)
[2019-01-30] MEDS: RANITIDINE HCL 150 MG TABLET (FP) PO SCH ×2 (10:06→21:16)
[2019-01-30] MEDS: SENNOSIDES/DOCUSATE COMBO (SENNA PLUS) TABLET (UD) PO SCH ×2 (10:06→21:16)
[2019-01-30] MEDS: BACITRACIN 15 GM TUBE TOPICAL OINTMENT TP SCH ×2 (10:07→21:17)
[2019-01-30] MEDS ORDERED: PT OWN MED DRAWER 7, Y5N ONE (19:07)
[2019-01-30] MEDS: THIAMINE HCL 100 MG TABLET (FP) PO SCH (21:16)
[2019-01-30] MEDS: risperiDONE 0.5 MG TABLET (FP) PO SCH (21:16)
--- NOTE | 2019-01-30 22:19 | PN ---
[facility] Progress Note Note: Patient c/o insomnia. Psych note reviewed. Will continue Belsomra.
[2019-01-30] MEDS: SUVOREXANT 10 MG TABLET PO PRN (22:32)
[2019-01-31] MEDS: RANITIDINE HCL 150 MG TABLET (FP) PO SCH ×2 (09:55→21:09)
[2019-01-31] MEDS: PRENATAL VITAMINS W/ FOLIC ACID TABLET (FP) PO SCH (09:55)
[2019-01-31] MEDS: BACITRACIN 15 GM TUBE TOPICAL OINTMENT TP SCH ×2 (09:56→21:09)
[2019-01-31] MEDS: SENNOSIDES/DOCUSATE COMBO (SENNA PLUS) TABLET (UD) PO SCH ×2 (09:56→21:09)
--- NOTE | 2019-01-31 14:09 | PN ---
[facility] Progress Note Note: Patient is scheduled for discharge tomorrow. Script for 30 days supply of Risperdal 0.5 mg/hs will be electronically transmitted to [facility] at [id number] [address]
--- NOTE | 2019-01-31 15:44 | DS ---
[facility] Rehab Discharge Summary - [facility] Rehab Discharge Summary Admission Date: 01/17/19 Discharge Date: 02/01/19 - History Present History: Alcohol dependence, Cannabis dependence Pertinent Past History: this 23 years old male with alcohol and marijuana dependence, syncope alcohol related abrasion of right knee ,right elbow denied seizure asthma history of lap by pass surgery - Discharge Physical Exam Vital Signs: Vital Signs Temperature 97.6 F 01/31/19 06:32 Pulse Rate 64 01/31/19 06:32 Respiratory Rate 18 01/31/19 06:32 Blood Pressure 113/71 01/31/19 06:32 O2 Sat by Pulse Oximetry (%) Pertinent Admission Physical Exam Findings: - Physical General Appearance: No apparent distress HEENTM: DEVEN, Respiratory:Lungs Clear, Neck: Supple, Breast: Yes: Within Normal Limits Cardiology: S1, S2 Abdominal: +Bowel Sounds, Soft, Surgical Scar Musculoskeletal: full weight bearing, full ROM, steady gait Neurological: ladies underwear operator II-XII NML intact; Motor Strength 5/5 Integumentary: warm, dry, color consistent throughout trunk and extremities. - Treatment Discharge Condition: Outpatient referral accepted (Patient will go the the [facility].) Hospital Course: Patient was adherent to treatment plan and medication regimen. Patient was seen by psychiatric provider, had one to one meetings with his counselor. He had no significant medical problems while in rehab and has not prescriptions for home medications. - Medication Discharge Medications: Ambulatory Orders Risperidone [Risperdal -] 1 mg PO DAILY 01/13/19 Risperidone [Risperdal -] 0.5 mg PO HS #30 tablet 01/31/19 - Medication-Assisted Treatment (MAT) Medication-Assisted Treatment (MAT): No - Discharge Instructions Diet, activity, other medical instructions: Diet:as tolerated Activity: as tolerated Other medical instructions: Please follow up with aftercare referral to the [facility]. Please make an appointment with your psychiatrist , Dr. Soler. - Diagnosis (1) Alcohol dependence Current Visit: Yes Status: Chronic Qualifiers: Substance use status: uncomplicated Qualified Code(s): F10.20 - Alcohol dependence, uncomplicated (2) Cannabis dependence Current Visit: Yes Status: Chronic (3) Asthma Current Visit: Yes Status: Chronic Qualifiers: Asthma severity: mild Asthma persistence: intermittent Asthma complication type: uncomplicated Qualified Code(s): J45.20 - Mild intermittent asthma, uncomplicated - Follow-up Referral Minutes to complete discharge: 20 - AMA Did Patient Leave Against Medical Advice: No Additional Comments: Patient will seek aftercare at the [facility]. He will make an appointment with his psychiatrist.
[2019-01-31] MEDS: SUVOREXANT 10 MG TABLET PO PRN (21:09)
[2019-01-31] MEDS: THIAMINE HCL 100 MG TABLET (FP) PO SCH (21:09)
[2019-01-31] MEDS: risperiDONE 0.5 MG TABLET (FP) PO SCH (21:09)
[2019-02-01 06:26] VITALS: BP 112/70; PULSE 59; TEMP 98.2
== END 2019-02-01 09:25 | disposition home or self-care (01) | DRG 772 ==
LOC: YASAS 18:14 → Y3W 18:17
PROVIDERS: ADMIT Neuromusculoskeletal Medicine & OMM; ATTEND Neuromusculoskeletal Medicine & OMM
PROC: HZ42ZZZ Group Counseling for Substance Abuse Treatment, Cognitive-Behavioral (ICD-10-PCS; principal; 2019-01-17)
DX: F10.20 Alcohol dependence, uncomplicated (principal); F12.20 Cannabis dependence, uncomplicated; F39 Unspecified mood [affective] disorder; F19.24 Other psychoactive substance dependence with psychoactive substance-induced mood disorder; F19.282 Other psychoactive substance dependence with psychoactive substance-induced sleep disorder; J45.20 Mild intermittent asthma, uncomplicated; S69.91XA Unspecified injury of right wrist, hand and finger(s), initial encounter; Y04.0XXA Assault by unarmed brawl or fight, initial encounter; W22.01XA Walked into wall, initial encounter; Y93.89 Activity, other specified; Y92.239 Unspecified place in hospital as the place of occurrence of the external cause; Z98.84 Bariatric surgery status
CPT/HCPCS: 73130-TC-RT-FY

== ENCOUNTER 2019-04-09 13:05 | Emergency (ER) | payer OTHER ==
[2019-04-09 13:15] VITALS: TEMP 98.1; BMI 30.4
[2019-04-09 14:27] LABS: BASO % 0.3 % (0-2.0); EOS % 2.7 % (0-4.5); HEMATOCRIT 45.5 % (35.4-49); HEMOGLOBIN 15.4 GM/dL (11.7-16.9); LYMPH % 39.4 % (8-40); MCH 30.5 pg (25.7-33.7); MCHC 33.9 g/dl (32.0-35.9); MEAN CELL VOLUME 89.9 fl (80-96); MEAN PLT VOLUME 8.5 fl (7.5-11.1); MONO % 4.4 % (3.8-10.2); NEUT % 53.2 % (42.8-82.8); PLATELET COUNT 259 K/MM3 (134-434); RBC 5.06 M/mm3 (4.00-5.60); RDW 13.6 % (11.9-15.9); WHITE BLOOD COUNT 7.1 K/mm3 (4.0-10.0)
--- NOTE | 2019-04-09 14:29 | PDOC ---
History of Present Illness - General Chief Complaint: Alcohol intoxication Stated Complaint: INTOX Time Seen by Provider: 04/09/19 13:15 - History of Present Illness Initial Comments: 04/09/19 14:23 23 yo M PMH asthma, alcohol use, marijuana use, p/w alcohol intoxication. Patient's sister called the ambulance because he was drunk. Patient reports drinking 5 beers this morning, denies any other substance use. Denies fall, LOC , trauma, N/V, fevers/chills, constipation/diarrhea. Past History - Past Medical History Allergies/Adverse Reactions: Allergies Allergy/AdvReac Type Severity Reaction Status Date / Time latex Allergy Severe Swelling Verified 04/09/19 13:06 Home Medications: Ambulatory Orders Risperidone [Risperdal -] 1 mg PO DAILY 01/13/19 Risperidone [Risperdal -] 0.5 mg PO HS #30 tablet 01/31/19 Anemia: No Asthma: No Cancer: No Cardiac Disorders: No CVA: No COPD: No CHF: No Dementia: No Diabetes: No GI Disorders: No Disorders: No HTN: No Hypercholesterolemia: No Kidney Stones: No Liver Disease: No Seizures: No Thyroid Disease: No - Surgical History Abdominal Surgery: Yes (lap 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/20/17) Appendectomy: No Cardiac Surgery: No Cholecystectomy: No Lung Surgery: No Neurologic Surgery: No Orthopedic Surgery: No - Reproductive History Testicular Surgery: No - Psycho Social/Smoking Cessation Hx Smoking History: Never smoked Have you smoked in the past 12 months: No Hx Alcohol Use: Yes Drug/Substance Use Hx: No Substance Use Type: Alcohol, Marijuana Hx Substance Use Treatment: No Review of Systems - Review of Systems Constitutional: No: Chills, Diaphoresis, Fever HEENTM: No: Blurred Vision, Recent change in vision, Double Vision, Tinnitus, Hearing Loss, Difficulty Swallowing Respiratory: No: Cough, Orthopnea, Shortness of Breath, Wheezing Cardiac (ROS): No: Chest Pain, Irregular Heart Rate, Lightheadedness, Palpitations, Syncope, Chest Tightness ABD/GI: No: Constipated, Diarrhea, Nausea, Vomiting : No: Burning, Dysuria, Discharge, Frequency, Flank Pain Musculoskeletal: No: Back Pain, Muscle Pain Neurological: No: Headache, Numbness, Tingling, Weakness *Physical Exam - Vital Signs Last Vital Signs Temp Pulse Resp BP Pulse Ox 98.1 F 125 H 18 123/73 100 04/09/19 13:11 04/09/19 13:11 04/09/19 13:11 04/09/19 13:11 04/09/19 13:11 - Physical Exam Comments: 04/09/19 14:27 Gen: well-developed, well-nourished, NAD Neuro: AAOX4, CN II-XII intact, FTN intact, EOMI, PERRLA, 5/5 strength, SILT HEENT: atraumatic, normocephalic, dry mucous membranes Neck: trachea midline, supple CV: tachycardic, regular rhythm, no murmurs, rubs, or gallops Pulm: CTA b/l, no wheezing Abd: soft, non-distended, non-tender MSK: full ROM, intact pulses Extr: no edema, no deformities Skin: warm, dry ED Treatment Course - LABORATORY CBC & Chemistry Diagram: 04/09/19 14:07 04/09/19 14:07 Medical Decision Making - Medical Decision Making 04/09/19 14:28 Patient orientated, clinically intoxicated. States that he would like detox. - CBC, CMP, alcohol - urine tox - [facility] 04/09/19 15:02 CBC, CMP wnl. 04/09/19 16:02 Alcohol 367.1. 04/09/19 17:08 U tox sent, will dc patient to [facility]. Discharge - Discharge Information Problems reviewed: Yes Clinical Impression/Diagnosis: Alcohol intoxication Disposition: HOME - Follow up/Referral - Patient Discharge Instructions Patient Printed Discharge Instructions: DI for Alcohol Abuse Additional Instructions: You were seen for alcohol intoxication. You expressed that you would like to enter detox. Please enter detox at [facility]. Follow up in the ED if you have worsening symptoms. - Post Discharge Activity
[2019-04-09 14:55] LABS: BILIRUBIN,TOTAL 0.3 mg/dL (0.2-1); BLOOD UREA NITROGEN 5.2 mg/dL (7-18); CALCIUM 8.3 mg/dL (8.5-10.1); CREATININE 0.9 mg/dL (0.55-1.3); POTASSIUM 3.8 mmol/L (3.5-5.1); TOT PROT 7.2 g/dl (6.4-8.2)
--- NOTE | 2019-04-09 15:25 | PDOC ---
Documentation entered by Arturo Saavedra SCRIBE, acting as scribe for Alexa Retana MD. Alexa Retana MD: This documentation has been prepared by the Keri nelson Xhesika, SCRIBE, under my direction and personally reviewed by me in its entirety. I confirm that the documentation accurately reflects all work, treatment, procedures, and medical decision making performed by me. Attending Attestation - Resident Resident Name: Arpit Salcido - ED Attending Attestation I have performed the following: I have examined & evaluated the patient, The case was reviewed & discussed with the resident, I agree w/resident's findings & plan, Exceptions are as noted - HPI HPI: 04/09/19 14:22 The patient is a 23 year old male with a significant PMH of asthma, alcohol use , marijuana use who presents to the emergency department for intoxication. Pt notes he had "5 beers" today, however, pt's sister called EMS because patient was extremely intoxicated. Patient notes he was in detox 1 week ago and was suppose to follow up with an outpatient detox center but never did. The patient denies chest pain, shortness of breath, headache and dizziness. Denies fever, chills, cough, nausea, vomiting, diarrhea and constipation. Denies dysuria, frequency, urgency and hematuria. Allergies: latex - Physicial Exam PE: 04/09/19 14:33 GENERAL: The patient is in no acute distress. HEAD: Normal with no signs of trauma. EYES: PERRLA, EOMI ENT: Moist mucous membranes. NECK: Normal range of motion, supple without midline tenderness to palpation LUNGS: Breath sounds equal, clear to auscultation bilaterally. No wheezes, and no crackles. HEART: Regular rate and rhythm, normal S1 and S2 without murmur, rub or gallop. ABDOMEN: Soft, nontender, normoactive bowel sounds. No guarding, no rebound. No masses palpable. EXTREMITIES: Normal range of motion NEUROLOGICAL: Cranial nerves II through XII grossly intact. Normal speech. MUSCULOSKELETAL: no deformities SKIN: No laceration, no bruising 04/09/19 15:01 - Medical Decision Making 04/09/19 15:21 23-year-old male presenting to the emergency department with a complaint of alcohol intoxication Patient sister called EMS Patient would like to go to the He has no complaints of trauma No external signs of injury We will do Basic labs Urine toxicology We will transfer to [facility] detox Patient is amatory with a steady gait 04/09/19 15:25 Laboratory Tests 04/09/19 04/09/19 14:07 14:07 WBC 7.1 Hgb 15.4 Hct 45.5 Plt Count 259 BUN 5.2 L Creatinine 0.9 04/09/19 15:56 Laboratory Tests 04/09/19 14:07 Alcohol, Quantitative 367.1 H Will observe for sobriety We will transfer to [facility] for detox
[2019-04-09 17:13] LABS: COCAINE, UR NEGATIVE ng/ml (CUTOFF=300); URINE AMPHETAMINES NEGATIVE ng/ml (CUTOFF=500); URINE BARBITURATES NEGATIVE ng/ml (CUTOFF=200); URINE BENZODIAZEPINES NEGATIVE ng/ml (CUTOFF=200)
[2019-04-09 17:14] LABS: METHADONE, UR NEGATIVE ng/ml (CUTOFF=300); OPIATES, URI NEGATIVE ng/ml (CUTOFF=300); PHENCYCLIDINE,URINE NEGATIVE ng/ml (CUTOFF=25)
[2019-04-09 17:28] VITALS: BP 130/88; PULSE 107
== END 2019-04-09 17:34 | disposition home or self-care (01) ==
LOC: JER 13:05
DX: F10.230 Alcohol dependence with withdrawal, uncomplicated (principal); Z91.040 Latex allergy status
CPT/HCPCS: 36415; 80053; 80307; 85025; 99283-25

== ENCOUNTER 2019-04-09 20:42 | Emergency (ER) | payer OTHER ==
[2019-04-09 20:59] VITALS: BMI 28.8
--- NOTE | 2019-04-09 21:02 | PDOC ---
History of Present Illness <Fernanda Joseph - Last Filed: 04/10/19 06:25> <Kobi Conte - Last Filed: 04/10/19 06:51> - General Chief Complaint: Alcohol intoxication Stated Complaint: ETOH INTOX Time Seen by Provider: 04/09/19 20:55 Past History <Fernanda Joseph - Last Filed: 04/10/19 06:25> - Past Medical History Anemia: No Asthma: No Cancer: No Cardiac Disorders: No CVA: No COPD: No CHF: No Dementia: No Diabetes: No GI Disorders: No Disorders: No HTN: No Hypercholesterolemia: No Kidney Stones: No Liver Disease: No Seizures: No Thyroid Disease: No - Surgical History Abdominal Surgery: Yes (lap 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/20/17) Appendectomy: No Cardiac Surgery: No Cholecystectomy: No Lung Surgery: No Neurologic Surgery: No Orthopedic Surgery: No - Reproductive History Testicular Surgery: No - Psycho Social/Smoking Cessation Hx Smoking History: Never smoked Have you smoked in the past 12 months: No Information on smoking cessation initiated: No Hx Alcohol Use: No Drug/Substance Use Hx: No Substance Use Type: Alcohol, Marijuana Hx Substance Use Treatment: No <Kobi Conte - Last Filed: 04/10/19 06:51> - Past Medical History Allergies/Adverse Reactions: Allergies Allergy/AdvReac Type Severity Reaction Status Date / Time latex Allergy Severe Swelling Verified 04/09/19 20:59 Home Medications: Ambulatory Orders NK [No Known Home Medication] 04/09/19 Review of Systems - Review of Systems Able to Perform ROS?: Yes Comments:: 04/10/19 06:48 ROS: GENERAL/CONSTITUTIONAL: No fever or chills. No weakness. HEAD, EYES, EARS, NOSE AND THROAT: No change in vision. No ear pain or discharge. No sore throat. CARDIOVASCULAR: No chest pain or shortness of breath RESPIRATORY: No cough, wheezing, or hemoptysis. GASTROINTESTINAL: No nausea, vomiting, diarrhea or constipation. GENITOURINARY: No dysuria, frequency, or change in urination. MUSCULOSKELETAL: No joint or muscle swelling or pain. No neck or back pain. SKIN: No rash NEUROLOGIC: No headache, vertigo, loss of consciousness, or change in strength/ sensation. ENDOCRINE: No increased thirst. No abnormal weight change HEMATOLOGIC/LYMPHATIC: No anemia, easy bleeding, or history of blood clots. ALLERGIC/IMMUNOLOGIC: No hives or skin allergy. <ChanasarahnyasiaKobi - Last Filed: 04/10/19 06:51> *Physical Exam - Vital Signs Last Vital Signs Temp Pulse Resp BP Pulse Ox 98.8 F 81 15 110/68 96 04/09/19 23:40 04/09/19 23:40 04/09/19 23:40 04/09/19 23:40 04/09/19 23:40 <JosephFernanda - Last Filed: 04/10/19 06:25> - Vital Signs Last Vital Signs Temp Pulse Resp BP Pulse Ox 98.1 F 86 18 156/88 100 04/09/19 20:54 04/09/19 20:54 04/09/19 20:54 04/09/19 20:54 04/09/19 20:54 - Physical Exam Comments: 04/10/19 06:49 PE: GENERAL: Awake, alert, and fully oriented, in no acute distress HEAD: No signs of trauma, normocephalic, atraumatic EYES: PERRLA, EOMI, sclera anicteric, conjunctiva clear ENT: Auricles normal inspection, hearing grossly normal, nares patent, oropharynx clear without exudates. Moist mucosa NECK: Normal ROM, supple, no lymphadenopathy, JVD, or masses LUNGS: No distress, speaks full sentences, clear to auscultation bilaterally HEART: Regular rate and rhythm, normal S1 and S2, no murmurs, rubs or gallops, peripheral pulses normal and equal bilaterally. ABDOMEN: Soft, nontender, normoactive bowel sounds. No guarding, no rebound. No masses EXTREMITIES : Normal inspection, Normal range of motion, no edema. No clubbing or cyanosis NEUROLOGICAL: Cranial nerves II through XII grossly intact. Normal speech, normal gait, no focal sensorimotor deficits SKIN: Warm, Dry, normal turgor, no rashes or lesions noted <ChanaKobi steven - Last Filed: 04/10/19 06:51> ED Treatment Course - Medications Given in the ED: ED Medications Discontinued Medications Generic Name Dose Route Start Last Admin Trade Name Freq PRN Reason Stop Dose Admin Chlordiazepoxide HCl 50 mg 04/09/19 21:22 04/09/19 21:25 Librium - PO 04/09/19 21:23 50 mg ONCE ONE Administration Lorazepam 2 mg 04/09/19 23:55 04/10/19 00:20 Ativan PO 04/09/19 23:56 2 mg ONCE ONE Administration <Fernanda Joseph - Last Filed: 04/10/19 06:25> Medical Decision Making - Medical Decision Making 04/10/19 06:49 23M hx EtOH use disorder, medically cleared today for [facility] detox, transferred back for concern for withdrawal, currently only endorsing anxiety, mild tremors. [facility] reporting scheduled discharges in AM. Plan: Librium 50 Observation in ED CIWA protocol as needed Dispo: Discharge in AM --- Endorsing ongoing anxiety, 2mg ativan ordered. --- On reassessment, sleeping comfortably. <Kobi Conte - Last Filed: 04/10/19 06:51> Discharge - Discharge Information Problems reviewed: Yes - Admission No <Fernanda Joseph - Last Filed: 04/10/19 06:25> - Discharge Information Problems reviewed: Yes - Admission No <Kobi Conte - Last Filed: 04/10/19 06:51> - Discharge Information Clinical Impression/Diagnosis: Alcohol dependence with uncomplicated withdrawal Condition: Improved Disposition: HOME - Patient Discharge Instructions Patient Printed Discharge Instructions: DI for Alcohol Abuse
[2019-04-09] MEDS ORDERED: chlordiazePOXIDE HCL 25 MG CAPSULE PO ONE (21:22)
[2019-04-09] MEDS ORDERED: chlordiazePOXIDE HCL 25 MG CAPSULE ONE (21:27)
--- NOTE | 2019-04-09 21:40 | PDOC ---
Documentation entered by Manasa Kraft SCRIBE, acting as scribe for Alexandro Palmer MD. Alexandro Palmer MD: This documentation has been prepared by the jaguaribeSwapnil Lincy, SCRIBE, under my direction and personally reviewed by me in its entirety. I confirm that the documentation accurately reflects all work, treatment, procedures, and medical decision making performed by me. Attending Attestation - Resident Resident Name: Kobi Conte - ED Attending Attestation I have performed the following: I have examined & evaluated the patient, The case was reviewed & discussed with the resident, I agree w/resident's findings & plan, Exceptions are as noted - HPI HPI: 04/09/19 21:28 The patient is a 23-year-old male, past medical history significant for Asthma, Etoh use, and Marijuana use who presents to the emergency department from [facility] for alcohol withdrawal. The patient was seen at the ER earlier today for alcohol intoxication and was discharged to [facility]. The patient was evaluated at [facility], however there was no bed available, so the patient was sent to the ER to monitor for alcohol withdrawal. - Physicial Exam PE: 04/10/19 01:17 Patient is awake and alert, well-nourished, mildly hypertensive and tremulous Normocephalic and atraumatic PERRLA, EOMI, no scleral icterus CTA RRR Mildly agitated, tremulous - Medical Decision Making 04/09/19 21:39 Patient is a 23-year-old male who was referred from particular detox for possible acute alcohol withdrawal. Patient was seen in this ER several hours previously for acute alcohol intoxication was cleared for inpatient detox. Due to lack of inpatient beds, patient was referred back to [facility]. In the ER, patient is mildly hypertensive, will administer Librium p.o. Will observe and discharged to [facility] when beds become available in the a.m. Complaining of insomnia.
[2019-04-09] MEDS ORDERED: LORazepam 2 MG TABLET PO ONE (23:55)
[2019-04-10] MEDS ORDERED: LORazepam 0.5 MG TABLET ONE (00:08)
[2019-04-10 06:39] VITALS: BP 143/90; PULSE 98; TEMP 98.1
== END 2019-04-10 06:49 | disposition home or self-care (01) ==
LOC: JER 20:42
DX: F10.230 Alcohol dependence with withdrawal, uncomplicated (principal); F41.9 Anxiety disorder, unspecified; Z91.040 Latex allergy status
CPT/HCPCS: 99282-25

== ENCOUNTER 2019-04-10 08:21 | Inpatient (IN) | payer OTHER ==
[2019-04-10 08:52] VITALS: BMI 29.5
--- NOTE | 2019-04-10 09:43 | HP ---
CIWA Score Nausea/Vomitin Muscle Tremors: 3 Anxiety: 3 Agitation: 3 Paroxysmal Sweats: No Perspiration Orientation: 0-Oriented Tacttile Disturbances: 1-Very Mild Itch/Numbness Auditory Disturbances: 0-None Visual Disturbances: 0-None Headache: 2-Mild CIWA-Ar Total Score: 14 - Admission Criteria OASAS Guidelines: Admission for Medically Managed Detox: Requires at least one of the followin. CIWA greater than 12 2. Seizures within the past 24 hours 3. Delirium tremens within the past 24 hours 4. Hallucinations within the past 24 hours 5. Acute intervention needed for co occurring medical disorder 6. Acute intervention needed for co occurring psychiatric disorder 7. Severe withdrawal that cannot be handled at a lower level of care (continued vomiting, continued diarrhea, abnormal vital signs) requiring intravenous medication and/or fluids 8. Admitting History and Physical - Smoking History Smoking history: Never smoked Have you smoked in the past 12 months: No - Alcohol/Substance Use Hx Alcohol Use: No Admission ROS BHS - HPI Chief Complaint: i need help to stop drinking alcohol, medically clear to return from er for detox Allergies/Adverse Reactions: Allergies Allergy/AdvReac Type Severity Reaction Status Date / Time latex Allergy Severe Swelling Verified 04/10/19 08:46 History of Present Illness: this 23 years old male with alcohol dependence,seeking help detox,withdrawal symptom, seen in er [facility] receiving librium and clear to return for detox had previous admissions in detox before last 01/13/19 to 01/17/19 nicotine dependence longest sobriety 2 years no sobriety plan for out patient program after detox history of personality and mood disorder lap 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/2017 Exam Limitations: No Limitations - Ebola screening Have you traveled outside of the country in the last 21 days: No (N) Have you had contact with anyone from an Ebola affected area: No - Review of Systems Constitutional: See HPI, Loss of Appetite, Night Sweats, Changes in sleep, Weakness EENT: reports: Tearing, Nose Congestion Respiratory: reports: No Symptoms reported Cardiac: reports: No Symptoms Reported GI: reports: Nausea, Poor Appetite, Abdominal cramping : reports: No Symptoms Reported Musculoskeletal: reports: Back Pain, Muscle Pain Integumentary: reports: Dryness Neuro: reports: Headache, Tremors Endocrine: reports: No Symptoms Reported Hematology: reports: No Symptoms Reported Psychiatric: reports: No Sypmtoms Reported, Judgement Intact, Mood/Affect Appropiate, Orientated x3, other (schizophrenia) Other Systems: Reviewed and Negative Patient History - Patient Medical History Hx Anemia: No Hx Asthma: No Hx Chronic Obstructive Pulmonary Disease (COPD): No Hx Cancer: No Hx Cardiac Disorders: No Hx Congestive Heart Failure: No Hx Hypertension: No Hx Hypercholesterolemia: No Hx Pacemaker: No HX Cerebrovascular Accident: No Hx Seizures: No Hx Dementia: No Hx Diabetes: No Hx Gastrointestinal Disorders: No Hx Liver Disease: No Hx Genitourinary Disorders: No Hx Sexually Transmitted Disorders: No Hx Renal Disease (ESRD): No Hx Thyroid Disease: No Hx Human Immunodeficiency Virus (HIV): No (last 11/17 negative) Hx Hepatitis C: No Hx Depression: Yes (no med) Hx Suicide Attempt: No Hx Bipolar Disorder: No Hx Schizophrenia: Yes (no med) Other Medical History: no suicidal,no homicidal - Patient Surgical History Past Surgical History: Yes Hx Neurologic Surgery: No Hx Cataract Extraction: No Hx Cardiac Surgery: No Hx Lung Surgery: No Hx Breast Surgery: No Hx Breast Biopsy: No Hx Abdominal Surgery: Yes (lap 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/20/17) Hx Appendectomy: No Hx Cholecystectomy: No Hx Genitourinary Surgery: No Hx Section: No Hx Orthopedic Surgery: No Anesthesia Reaction: No - PPD History Previous Implant?: Yes Documented Results: Negative w/o proof Implanted On Prior R Admission?: No PPD to be Administered?: Yes - Smoking Cessation Smoking history: Current every day smoker Have you smoked in the past 12 months: Yes Aproximately how many cigarettes per day: 6 Cigars Per Day: 0 Hx Chewing Tobacco Use: No Initiated information on smoking cessation: Yes 'Breaking Loose' booklet given: 04/10/19 - Substance & Tx. History Hx Alcohol Use: Yes Hx Substance Use: Yes Substance Use Type: Alcohol, Marijuana Hx Substance Use Treatment: Yes ([facility] 01/13/19 to 01/17/19) - Substances abused Alcohol Substance route: Oral Frequency: Daily Amount used: 1 bottle of vodka and 1 (12) pack of beer 16oz Age of first use: 22 Date of last use: 04/09/19 Marijuana/Hashish Substance route: Smoking Frequency: 1-3 times last 30 days Amount used: 25$ Age of first use: 19 Date of last use: 11/25/18 Admission Physical Exam [facility] - Vital Signs Vital Signs: Vital Signs - 24 hr 04/10/19 04/10/19 08:47 09:03 Temperature 98.5 F 98.5 F Pulse Rate 81 81 Respiratory 18 18 Rate Blood Pressure 152/97 152/97 - Physical General Appearance: Yes: Moderate Distress, Tremorous, Irritable, Sweating, Anxious HEENTM: Yes: Normal ENT Inspection, DEVEN, Pharynx Normal Respiratory: Yes: Lungs Clear, Normal Breath Sounds, No Respiratory Distress Neck: Yes: Within Normal Limits, Supple, Trachea in good position Breast: Yes: Within Normal Limits Cardiology: Yes: Within Normal Limits, Regular Rhythm, Regular Rate, S1, S2 Abdominal: Yes: Within Normal Limits, Normal Bowel Sounds, Non Tender, Soft Genitourinary: Yes: Within Normal Limits Back: Yes: Muscle Spasm Extremities: Yes: Tremors Neurological: Yes: return agent airport II-XII NML intact, Fully Oriented, Alert, Motor Strength 5/5 Integumentary: Yes: Dry Lymphatic: Yes: Within Normal Limits - Diagnostic (1) Alcohol dependence with uncomplicated withdrawal Current Visit: Yes Status: Acute (2) History of gastric bypass Current Visit: No Status: Acute (3) Personality disorder Current Visit: No Status: Acute (4) Asthma Current Visit: No Status: Chronic Qualifiers: Asthma severity: mild Asthma persistence: intermittent Asthma complication type: uncomplicated Qualified Code(s): J45.20 - Mild intermittent asthma, uncomplicated Cleared for Admission [facility] - Detox or Rehab [facility] Level of Care: Medically Managed Detox Regimen/Protocol: Librium Breathalyzer - Breathalyzer Breathalyzer: 0 Urine Drug Screen - Test Device Lot number: [id number] Expiration date: 12/29/20 - Control Is test valid?: Yes - Results Drug screen NEGATIVE: No Urine drug screen results: CATRACHITA-Cocaine, BZO-Benzodiazepines Inpatient Rehab Admission - Rehab Decision to Admit Inpatient rehab admission?: No
[2019-04-10] MEDS ORDERED: BISMUTH SUBSALICYLATE 524 MG/30 ML UD PO PRN (10:01)
[2019-04-10] MEDS ORDERED: hydrOXYzine PAMOATE 25 MG CAPSULE (FP) PO PRN (10:01)
[2019-04-10] MEDS ORDERED: MAGNESIUM HYDROX 2400MG/30ML ORAL SUSPENSION 30 ML CUP PO PRN (10:01)
[2019-04-10] MEDS ORDERED: ACETAMINOPHEN 325 MG TABLET (FP) PO PRN ×2 (10:01)
[2019-04-10] MEDS ORDERED: MENTHOL/PHENOL 1 EACH UD MM PRN (10:01)
[2019-04-10] MEDS ORDERED: IBUPROFEN 400 MG TABLET (FP) PO PRN (10:01)
[2019-04-10] MEDS ORDERED: NICOTINE POLACRILEX 2 MG GUM BUC PRN (10:01)
[2019-04-10] MEDS ORDERED: METHOCARBAMOL 500 MG TABLET PO PRN (10:01)
[2019-04-10] MEDS ORDERED: MAGNESIUM CITRATE 300 ML BOTTLE PO PRN (10:01)
[2019-04-10] MEDS: chlordiazePOXIDE HCL 25 MG CAPSULE PO PRN (12:05)
[2019-04-10] MEDS: NICOTINE 14 MG/24 HOURS TOPICAL PATCH TD SCH (12:09)
[2019-04-10] MEDS: chlordiazePOXIDE HCL 25 MG CAPSULE PO SCH ×2 (17:38→22:07)
[2019-04-10] MEDS: THIAMINE HCL 100 MG TABLET (FP) PO SCH (22:07)
[2019-04-10] MEDS: MELATONIN 5 MG TABLETS PO PRN (22:07)
[2019-04-11] MEDS: chlordiazePOXIDE HCL 25 MG CAPSULE PO SCH ×4 (05:16→22:13)
[2019-04-11 09:40] LABS: HEMATOCRIT 43.9 % (35.4-49); HEMOGLOBIN 14.9 GM/dL (11.7-16.9); MCH 30.9 pg (25.7-33.7); MCHC 34.1 g/dl (32.0-35.9); MEAN CELL VOLUME 90.7 fl (80-96); MEAN PLT VOLUME 9.1 fl (7.5-11.1); PLATELET COUNT 224 K/MM3 (134-434); RBC 4.84 M/mm3 (4.00-5.60); RDW 13.4 % (11.9-15.9); WHITE BLOOD COUNT 4.5 K/mm3 (4.0-10.0)
[2019-04-11 09:56] LABS: ALBUMIN 3.7 g/dl (3.4-5.0); BLOOD UREA NITROGEN 8.8 mg/dL (7-18); CALCIUM 9.4 mg/dL (8.5-10.1); CREATININE 0.8 mg/dL (0.55-1.3); POTASSIUM 4.3 mmol/L (3.5-5.1); TOT PROT 6.7 g/dl (6.4-8.2)
[2019-04-11] MEDS: PRENATAL VITAMINS W/ FOLIC ACID TABLET (FP) PO SCH (10:04)
[2019-04-11] MEDS: NICOTINE 14 MG/24 HOURS TOPICAL PATCH TD SCH (10:06)
--- NOTE | 2019-04-11 10:11 | PN ---
[facility] CIWA - CIWA Score Nausea/Vomitin-Mild Nausea/No Vomiting Muscle Tremors: 3 Anxiety: 3 Agitation: 2 Paroxysmal Sweats: 2 Orientation: 1-Uncertain about Date Tacttile Disturbances: 1-Very Mild Itch/Numbness Auditory Disturbances: 0-None Visual Disturbances: 0-None Headache: 0-None Present CIWA-Ar Total Score: 13 S Progress Note (SOAP) Subjective: 23 years old male admitted on 04/10/19 for alcohol withdrawal sx management treated ith librium detox regimen ate breakfast no trouble chewing swallowing resting on bed feeling tired requests antidepressant patient will be seen by psychiatrist today Objective: 04/11/19 10:10 Vital Signs Temperature 97.0 F L 04/11/19 09:22 Pulse Rate 89 04/11/19 09:22 Respiratory Rate 18 04/11/19 09:22 Blood Pressure 138/94 04/11/19 09:22 O2 Sat by Pulse Oximetry (%) Laboratory Last Values WBC 4.5 K/mm3 (4.0-10.0) 04/11/19 07:50 RBC 4.84 M/mm3 (4.00-5.60) 04/11/19 07:50 Hgb 14.9 GM/dL (11.7-16.9) 04/11/19 07:50 Hct 43.9 % (35.4-49) 04/11/19 07:50 MCV 90.7 fl (80-96) 04/11/19 07:50 MCH 30.9 pg (25.7-33.7) 04/11/19 07:50 MCHC 34.1 g/dl (32.0-35.9) 04/11/19 07:50 RDW 13.4 % (11.9-15.9) 04/11/19 07:50 Plt Count 224 K/MM3 (134-434) 04/11/19 07:50 MPV 9.1 fl (7.5-11.1) 04/11/19 07:50 Sodium 138 mmol/L (136-145) 04/11/19 07:50 Potassium 4.3 mmol/L (3.5-5.1) 04/11/19 07:50 Chloride 101 mmol/L (98-107) 04/11/19 07:50 Carbon Dioxide 31 mmol/L (21-32) 04/11/19 07:50 Anion Gap 5 MMOL/L (8-16) L 04/11/19 07:50 BUN 8.8 mg/dL (7-18) 04/11/19 07:50 Creatinine 0.8 mg/dL (0.55-1.3) 04/11/19 07:50 Est GFR (CKD-EPI)AfAm 148.00 04/11/19 07:50 Est GFR (CKD-EPI)NonAf 127.70 04/11/19 07:50 Random Glucose 82 mg/dL (74-106) 04/11/19 07:50 Calcium 9.4 mg/dL (8.5-10.1) 04/11/19 07:50 Total Bilirubin 1.0 mg/dL (0.2-1) 04/11/19 07:50 AST 24 U/L (15-37) 04/11/19 07:50 ALT 26 U/L (13-61) 04/11/19 07:50 Alkaline Phosphatase 155 U/L (45-117) H 04/11/19 07:50 Total Protein 6.7 g/dl (6.4-8.2) 04/11/19 07:50 Albumin 3.7 g/dl (3.4-5.0) 04/11/19 07:50 lab noted Assessment: 04/11/19 10:10 alcohol withdrawal sx Plan: continue librium detox regimen
--- NOTE | 2019-04-11 13:27 | CONSULT ---
[facility] Psychiatric Consult - Data Date of interview: 04/11/19 Admission source: [facility] Identifying data: Readmission to [facility] for this 23 y/o [place] male self-referred for detoxification (MELY issuse : cannabis, nicotine, alcohol) . Interviewed at [address] [place] [address]. Patient is single, no children, domiciled (lives with his mother), unemployed and supported by relatives. Substance Abuse History: Discussed in this session. Details in current [facility] report as follows : Smoking history: Current every day smoker. Have you smoked in the past 12 months: Yes. Aproximately how many cigarettes per day: 6. Cigars Per Day: 0. Hx Chewing Tobacco Use: No. Initiated information on smoking cessation: Yes. 'Breaking Loose' booklet given: 04/10/19. - Substance & Tx. History. Hx Alcohol Use: Yes. Hx Substance Use: Yes. Substance Use Type : Alcohol, Marijuana. Hx Substance Use Treatment: Yes ([facility] 01/13/19 to 01/17/19 ). - Substances abused. Alcohol. Substance route: Oral. Frequency: Daily. Amount used: 1 bottle of vodka and 1 (12) pack of beer 16oz. Age of first use: 22. Date of last use: 04/09/19. Marijuana/Hashish. Substance route: Smoking. Frequency: 1-3 times last 30 days. Amount used: 25$. Age of first use: 19. Date of last use: 11/25/18 Medical History: Medical profile is remarkable for bronchial asthma, history of gastric bypass and herniorraphy (2017). Psychiatric History: Patient denies history of psychiatric hospitalizations. Patient reports that he " used to " see a psychiatrist, Dr Matthew, at a [facility] mental health clinic in the [place] for psychotherapy + medication management (risperdal 0.5 mg/hs). Diagnosed with Mood Disorder NOS ( self-report). Mr Benton reports that he has NOT taken his dose of risperdal for more than THREE months. Denies history of suicide attempts. Physical/Sexual Abuse/Trauma History: Patient denies. Additional Comment: Urine drug screen results: CATRACHITA-Cocaine, BZO- Benzodiazepines. Noted. Mental Status Exam - Mental Status Exam Alert and Oriented to: Time, Place, Person Cognitive Function: Good Patient Appearance: Well Groomed Mood: Hopeful, Euthymic Affect: Appropriate, Normal Range Patient Behavior: Fatigued, Cooperative Speech Pattern: Clear, Appropriate Voice Loudness: Normal Thought Process: Intact, Goal Oriented Thought Disorder: Not Present Hallucinations: Denies Suicidal Ideation: Denies Homicidal Ideation: Denies Insight/Judgement: Poor Sleep: Poorly, Difficulty falling asleep Appetite: Good Muscle strength/Tone: Normal Gait/Station: Normal Psychiatric Findings - Problem List ([place] 1, 2,3) (1) Alcohol dependence with uncomplicated withdrawal Current Visit: Yes Status: Acute (2) Cannabis dependence Current Visit: Yes Status: Suspected (3) Substance induced mood disorder Current Visit: Yes Status: Chronic (4) Nicotine dependence Current Visit: Yes Status: Chronic (5) Insomnia Current Visit: Yes Status: Chronic (6) Non-compliance Current Visit: Yes Status: Chronic - Initial Treatment Plan Initial Treatment Plan: Psychoeducation. Sleep hygiene. Detoxification. Patient requests to resume risperdal at the dose of 1 mg po at bedtime. Ordered. Insomnia is addressed with trazodone 50 mg po hs. Side effects/benefits of both drugs are discussed with patient. Made aware of risk of abnormal involuntary movements, dystonias, dyskinesias, akathisia, sexual impotence, neuroleptic malignant syndrome and priapism. Instructed to declines trazodone and alert MD/ RN if occurrence of prolonged + painful erection. Patient agrees. Gave verbal consent to follow this plan of care. Observation.
[2019-04-11] MEDS: THIAMINE HCL 100 MG TABLET (FP) PO SCH (22:13)
[2019-04-11] MEDS: traZODone HCL 50 MG TABLET (FP) PO SCH (22:13)
[2019-04-11] MEDS: risperiDONE 1 MG TABLET (FP) PO SCH (22:13)
[2019-04-11] MEDS: MELATONIN 5 MG TABLETS PO PRN (22:14)
[2019-04-12] MEDS: chlordiazePOXIDE HCL 25 MG CAPSULE PO SCH ×4 (06:05→22:12)
[2019-04-12] MEDS ORDERED: risperiDONE 1 MG TABLET (FP) PO SCH (10:00)
[2019-04-12] MEDS: NICOTINE 14 MG/24 HOURS TOPICAL PATCH TD SCH (10:31)
[2019-04-12] MEDS: PRENATAL VITAMINS W/ FOLIC ACID TABLET (FP) PO SCH (10:32)
--- NOTE | 2019-04-12 13:59 | PN ---
[facility] CIWA - CIWA Score Nausea/Vomitin-Mild Nausea/No Vomiting Muscle Tremors: 4-Moderate,w/Arms Extend Anxiety: 3 Agitation: 2 Paroxysmal Sweats: 1-Minimal Palms Moist Orientation: 0-Oriented Tacttile Disturbances: 1-Very Mild Itch/Numbness Auditory Disturbances: 0-None Visual Disturbances: 0-None Headache: 0-None Present CIWA-Ar Total Score: 12 S Progress Note (SOAP) Subjective: 23 years old male admitted on 04/10/19 for alcohol withdrawal sx management treated with librium detox regimen sleep better at night less tremor mild anxiety Objective: 04/12/19 13:58 Vital Signs Temperature 98.5 F 04/12/19 13:17 Pulse Rate 101 H 04/12/19 13:17 Respiratory Rate 18 04/12/19 13:17 Blood Pressure 111/68 04/12/19 13:17 O2 Sat by Pulse Oximetry (%) Laboratory Last Values WBC 4.5 K/mm3 (4.0-10.0) 04/11/19 07:50 RBC 4.84 M/mm3 (4.00-5.60) 04/11/19 07:50 Hgb 14.9 GM/dL (11.7-16.9) 04/11/19 07:50 Hct 43.9 % (35.4-49) 04/11/19 07:50 MCV 90.7 fl (80-96) 04/11/19 07:50 MCH 30.9 pg (25.7-33.7) 04/11/19 07:50 MCHC 34.1 g/dl (32.0-35.9) 04/11/19 07:50 RDW 13.4 % (11.9-15.9) 04/11/19 07:50 Plt Count 224 K/MM3 (134-434) 04/11/19 07:50 MPV 9.1 fl (7.5-11.1) 04/11/19 07:50 Sodium 138 mmol/L (136-145) 04/11/19 07:50 Potassium 4.3 mmol/L (3.5-5.1) 04/11/19 07:50 Chloride 101 mmol/L (98-107) 04/11/19 07:50 Carbon Dioxide 31 mmol/L (21-32) 04/11/19 07:50 Anion Gap 5 MMOL/L (8-16) L 04/11/19 07:50 BUN 8.8 mg/dL (7-18) 04/11/19 07:50 Creatinine 0.8 mg/dL (0.55-1.3) 04/11/19 07:50 Est GFR (CKD-EPI)AfAm 148.00 04/11/19 07:50 Est GFR (CKD-EPI)NonAf 127.70 04/11/19 07:50 Random Glucose 82 mg/dL (74-106) 04/11/19 07:50 Calcium 9.4 mg/dL (8.5-10.1) 04/11/19 07:50 Total Bilirubin 1.0 mg/dL (0.2-1) 04/11/19 07:50 AST 24 U/L (15-37) 04/11/19 07:50 ALT 26 U/L (13-61) 04/11/19 07:50 Alkaline Phosphatase 155 U/L (45-117) H 04/11/19 07:50 Total Protein 6.7 g/dl (6.4-8.2) 04/11/19 07:50 Albumin 3.7 g/dl (3.4-5.0) 04/11/19 07:50 RPR Titer Nonreactive (NONREACTIVE) 04/11/19 07:50 lab noted Assessment: 04/12/19 13:58 alcohol withdrawal sx Plan: continue librium detox regimen
[2019-04-12] MEDS: chlordiazePOXIDE HCL 25 MG CAPSULE PO PRN (15:19)
[2019-04-12] MEDS: MELATONIN 5 MG TABLETS PO PRN (22:13)
[2019-04-12] MEDS: THIAMINE HCL 100 MG TABLET (FP) PO SCH (22:13)
[2019-04-12] MEDS: traZODone HCL 50 MG TABLET (FP) PO SCH (22:13)
[2019-04-12] MEDS: risperiDONE 1 MG TABLET (FP) PO SCH (22:13)
[2019-04-13] MEDS ORDERED: chlordiazePOXIDE HCL 10 MG CAPSULE PO PRN
[2019-04-13] MEDS: chlordiazePOXIDE HCL 10 MG CAPSULE PO SCH ×4 (05:37→22:29)
[2019-04-13] MEDS: PRENATAL VITAMINS W/ FOLIC ACID TABLET (FP) PO SCH (10:09)
[2019-04-13] MEDS: NICOTINE 14 MG/24 HOURS TOPICAL PATCH TD SCH (10:10)
--- NOTE | 2019-04-13 10:24 | PN ---
S CIWA - CIWA Score Nausea/Vomitin-Mild Nausea/No Vomiting Muscle Tremors: 2 Anxiety: 2 Agitation: 2 Paroxysmal Sweats: 1-Minimal Palms Moist Orientation: 0-Oriented Tacttile Disturbances: 0-None Auditory Disturbances: 0-None Visual Disturbances: 0-None Headache: 1-Very Mild CIWA-Ar Total Score: 9 BHS Progress Note (SOAP) Subjective: 23 years old male admitted on 04/10/19 for alcohol withdrawal sx management treated with librium detox regimen history of gastric bypass c/o gi discomfort discontinue motrin begin pepcide 20 mg po bid Objective: 04/13/19 10:26 Vital Signs Temperature 97.2 F L 04/13/19 09:17 Pulse Rate 117 H 04/13/19 09:17 Respiratory Rate 18 04/13/19 09:17 Blood Pressure 123/82 04/13/19 09:17 O2 Sat by Pulse Oximetry (%) Laboratory Last Values WBC 4.5 K/mm3 (4.0-10.0) 04/11/19 07:50 RBC 4.84 M/mm3 (4.00-5.60) 04/11/19 07:50 Hgb 14.9 GM/dL (11.7-16.9) 04/11/19 07:50 Hct 43.9 % (35.4-49) 04/11/19 07:50 MCV 90.7 fl (80-96) 04/11/19 07:50 MCH 30.9 pg (25.7-33.7) 04/11/19 07:50 MCHC 34.1 g/dl (32.0-35.9) 04/11/19 07:50 RDW 13.4 % (11.9-15.9) 04/11/19 07:50 Plt Count 224 K/MM3 (134-434) 04/11/19 07:50 MPV 9.1 fl (7.5-11.1) 04/11/19 07:50 Sodium 138 mmol/L (136-145) 04/11/19 07:50 Potassium 4.3 mmol/L (3.5-5.1) 04/11/19 07:50 Chloride 101 mmol/L (98-107) 04/11/19 07:50 Carbon Dioxide 31 mmol/L (21-32) 04/11/19 07:50 Anion Gap 5 MMOL/L (8-16) L 04/11/19 07:50 BUN 8.8 mg/dL (7-18) 04/11/19 07:50 Creatinine 0.8 mg/dL (0.55-1.3) 04/11/19 07:50 Est GFR (CKD-EPI)AfAm 148.00 04/11/19 07:50 Est GFR (CKD-EPI)NonAf 127.70 04/11/19 07:50 POC Glucometer 175 UNITS (80-120) 04/12/19 19:35 Random Glucose 82 mg/dL (74-106) 04/11/19 07:50 Calcium 9.4 mg/dL (8.5-10.1) 04/11/19 07:50 Total Bilirubin 1.0 mg/dL (0.2-1) 04/11/19 07:50 AST 24 U/L (15-37) 04/11/19 07:50 ALT 26 U/L (13-61) 04/11/19 07:50 Alkaline Phosphatase 155 U/L (45-117) H 04/11/19 07:50 Total Protein 6.7 g/dl (6.4-8.2) 04/11/19 07:50 Albumin 3.7 g/dl (3.4-5.0) 04/11/19 07:50 RPR Titer Nonreactive (NONREACTIVE) 04/11/19 07:50 lab noted Assessment: 04/13/19 10:27 alcohol withdrawal sx Plan: continue librium detox regimen
[2019-04-13] MEDS: FAMOTIDINE 20 MG TABLET PO SCH ×2 (11:44→22:25)
--- NOTE | 2019-04-13 20:57 | PN ---
[facility] Progress Note Note: Psychiatry Attending's note (delayed) : [employer] Consultant was approached by patient. Earlier this evening. Complaint : Refractory insomnia. Trazodone not effective at 50 mg/hs. Patient requested dose increase to 100 mg/hs. Action : Sleep hygiene principles revisited. Trazodone 100 mg po hs Side effects/benefits discussed with patient. Re-confirmed his verbal consent.
[2019-04-13] MEDS: risperiDONE 1 MG TABLET (FP) PO SCH (22:26)
[2019-04-13] MEDS: THIAMINE HCL 100 MG TABLET (FP) PO SCH (22:26)
[2019-04-13] MEDS: traZODone HCL 50 MG TABLET (FP) PO SCH (22:27)
[2019-04-13] MEDS: MELATONIN 5 MG TABLETS PO PRN (22:28)
[2019-04-14] MEDS: MAG HYDROX/AL HYDROX/SIMETH 30 ML UNIT-DOSE CUP PO PRN ×2 (03:08→13:05)
[2019-04-14] MEDS: chlordiazePOXIDE HCL 10 MG CAPSULE PO SCH ×2 (06:16→17:42)
[2019-04-14] MEDS: NICOTINE 14 MG/24 HOURS TOPICAL PATCH TD SCH (09:44)
[2019-04-14] MEDS: PRENATAL VITAMINS W/ FOLIC ACID TABLET (FP) PO SCH (09:44)
[2019-04-14] MEDS: FAMOTIDINE 20 MG TABLET PO SCH ×2 (09:44→22:15)
--- NOTE | 2019-04-14 15:00 | PN ---
S CIWA - CIWA Score Nausea/Vomitin-No Nausea/No Vomiting Muscle Tremors: 2 Anxiety: 2 Agitation: 1-Slight > Activity Paroxysmal Sweats: No Perspiration Orientation: 0-Oriented Tacttile Disturbances: 0-None Auditory Disturbances: 0-None Visual Disturbances: 0-None Headache: 0-None Present CIWA-Ar Total Score: 5 S Progress Note (SOAP) Subjective: 23 years old male admitted on 04/10/19 for alcohol withdrawal sx management treated with libriium detox regimen sleep better at night less tremor mild anxiety Objective: 04/14/19 15:00 Vital Signs Temperature 96.9 F L 04/14/19 13:10 Pulse Rate 86 04/14/19 13:10 Respiratory Rate 18 04/14/19 13:10 Blood Pressure 123/66 04/14/19 13:10 O2 Sat by Pulse Oximetry (%) Laboratory Last Values WBC 4.5 K/mm3 (4.0-10.0) 04/11/19 07:50 RBC 4.84 M/mm3 (4.00-5.60) 04/11/19 07:50 Hgb 14.9 GM/dL (11.7-16.9) 04/11/19 07:50 Hct 43.9 % (35.4-49) 04/11/19 07:50 MCV 90.7 fl (80-96) 04/11/19 07:50 MCH 30.9 pg (25.7-33.7) 04/11/19 07:50 MCHC 34.1 g/dl (32.0-35.9) 04/11/19 07:50 RDW 13.4 % (11.9-15.9) 04/11/19 07:50 Plt Count 224 K/MM3 (134-434) 04/11/19 07:50 MPV 9.1 fl (7.5-11.1) 04/11/19 07:50 Sodium 138 mmol/L (136-145) 04/11/19 07:50 Potassium 4.3 mmol/L (3.5-5.1) 04/11/19 07:50 Chloride 101 mmol/L (98-107) 04/11/19 07:50 Carbon Dioxide 31 mmol/L (21-32) 04/11/19 07:50 Anion Gap 5 MMOL/L (8-16) L 04/11/19 07:50 BUN 8.8 mg/dL (7-18) 04/11/19 07:50 Creatinine 0.8 mg/dL (0.55-1.3) 04/11/19 07:50 Est GFR (CKD-EPI)AfAm 148.00 04/11/19 07:50 Est GFR (CKD-EPI)NonAf 127.70 04/11/19 07:50 POC Glucometer 175 UNITS (80-120) 04/12/19 19:35 Random Glucose 82 mg/dL (74-106) 04/11/19 07:50 Calcium 9.4 mg/dL (8.5-10.1) 04/11/19 07:50 Total Bilirubin 1.0 mg/dL (0.2-1) 04/11/19 07:50 AST 24 U/L (15-37) 04/11/19 07:50 ALT 26 U/L (13-61) 04/11/19 07:50 Alkaline Phosphatase 155 U/L (45-117) H 04/11/19 07:50 Total Protein 6.7 g/dl (6.4-8.2) 04/11/19 07:50 Albumin 3.7 g/dl (3.4-5.0) 04/11/19 07:50 RPR Titer Nonreactive (NONREACTIVE) 04/11/19 07:50 lab noted Assessment: 04/14/19 15:01 alcohol withdrawal sx Plan: continue librium detox regimen
[2019-04-14] MEDS: THIAMINE HCL 100 MG TABLET (FP) PO SCH (22:15)
[2019-04-14] MEDS: traZODone HCL 50 MG TABLET (FP) PO SCH (22:15)
[2019-04-14] MEDS: MELATONIN 5 MG TABLETS PO PRN (22:15)
[2019-04-14] MEDS: risperiDONE 1 MG TABLET (FP) PO SCH (22:15)
[2019-04-15] MEDS ORDERED: chlordiazePOXIDE HCL 10 MG CAPSULE PO ONE (05:00)
--- NOTE | 2019-04-15 08:32 | PN ---
S CIWA - CIWA Score Nausea/Vomitin-No Nausea/No Vomiting Muscle Tremors: 1-None Visible, but [place] Anxiety: 1-Mildly Anxious Agitation: 1-Slight > Activity Paroxysmal Sweats: No Perspiration Orientation: 0-Oriented Tacttile Disturbances: 0-None Auditory Disturbances: 0-None Visual Disturbances: 0-None Headache: 0-None Present CIWA-Ar Total Score: 3 BHS Progress Note (SOAP) Subjective: alert,no complaint Objective: 04/15/19 08:30 Vital Signs Temperature 97.1 F L 04/15/19 05:54 Pulse Rate 67 04/15/19 05:54 Respiratory Rate 18 04/15/19 05:54 Blood Pressure 115/72 04/15/19 05:54 O2 Sat by Pulse Oximetry (%) Assessment: 04/15/19 08:31 detox completed,no withdrawal symptom Plan: discharge today,follow up with [facility]
[2019-04-15 09:10] VITALS: BP 129/71; PULSE 102; TEMP 96.6
[2019-04-15] MEDS: FAMOTIDINE 20 MG TABLET PO SCH (10:19)
[2019-04-15] MEDS: PRENATAL VITAMINS W/ FOLIC ACID TABLET (FP) PO SCH (10:19)
[2019-04-15] MEDS: NICOTINE 14 MG/24 HOURS TOPICAL PATCH TD SCH (10:19)
--- NOTE | 2019-04-15 11:44 | DS ---
[facility] Detox Discharge Summary Admission Date: 04/10/19 Discharge Date: 04/15/19 - History Present History: Alcohol Dependence - Physical Exam Results Vital Signs: Vital Signs Temperature 96.6 F L 04/15/19 09:09 Pulse Rate 102 H 04/15/19 09:09 Respiratory Rate 18 04/15/19 09:09 Blood Pressure 129/71 04/15/19 09:09 O2 Sat by Pulse Oximetry (%) Pertinent Admission Physical Exam Findings: withdrawal signs and symptom Laboratory Last Values WBC 4.5 K/mm3 (4.0-10.0) 04/11/19 07:50 RBC 4.84 M/mm3 (4.00-5.60) 04/11/19 07:50 Hgb 14.9 GM/dL (11.7-16.9) 04/11/19 07:50 Hct 43.9 % (35.4-49) 04/11/19 07:50 MCV 90.7 fl (80-96) 04/11/19 07:50 MCH 30.9 pg (25.7-33.7) 04/11/19 07:50 MCHC 34.1 g/dl (32.0-35.9) 04/11/19 07:50 RDW 13.4 % (11.9-15.9) 04/11/19 07:50 Plt Count 224 K/MM3 (134-434) 04/11/19 07:50 MPV 9.1 fl (7.5-11.1) 04/11/19 07:50 Sodium 138 mmol/L (136-145) 04/11/19 07:50 Potassium 4.3 mmol/L (3.5-5.1) 04/11/19 07:50 Chloride 101 mmol/L (98-107) 04/11/19 07:50 Carbon Dioxide 31 mmol/L (21-32) 04/11/19 07:50 Anion Gap 5 MMOL/L (8-16) L 04/11/19 07:50 BUN 8.8 mg/dL (7-18) 04/11/19 07:50 Creatinine 0.8 mg/dL (0.55-1.3) 04/11/19 07:50 Est GFR (CKD-EPI)AfAm 148.00 04/11/19 07:50 Est GFR (CKD-EPI)NonAf 127.70 04/11/19 07:50 POC Glucometer 175 UNITS (80-120) 04/12/19 19:35 Random Glucose 82 mg/dL (74-106) 04/11/19 07:50 Calcium 9.4 mg/dL (8.5-10.1) 04/11/19 07:50 Total Bilirubin 1.0 mg/dL (0.2-1) 04/11/19 07:50 AST 24 U/L (15-37) 04/11/19 07:50 ALT 26 U/L (13-61) 04/11/19 07:50 Alkaline Phosphatase 155 U/L (45-117) H 04/11/19 07:50 Total Protein 6.7 g/dl (6.4-8.2) 04/11/19 07:50 Albumin 3.7 g/dl (3.4-5.0) 04/11/19 07:50 RPR Titer Nonreactive (NONREACTIVE) 04/11/19 07:50 - Treatment Hospital Course: Detox Protocol Followed, Detoxed Safely, Responded well, Discharged Condition Good, Rehab Referral Accepted Patient has Accepted a [facility] Referral to: [facility] - Medication Discharge Medications: Ambulatory Orders NK [No Known Home Medication] 04/09/19 - Diagnosis (1) Alcohol dependence with uncomplicated withdrawal Current Visit: Yes Status: Acute (2) History of gastric bypass Current Visit: No Status: Acute (3) Personality disorder Current Visit: No Status: Acute (4) Asthma Current Visit: No Status: Chronic Qualifiers: Asthma severity: mild Asthma persistence: intermittent Asthma complication type: uncomplicated Qualified Code(s): J45.20 - Mild intermittent asthma, uncomplicated - AMA Did Patient Leave Against Medical Advice: No
== END 2019-04-15 12:11 | disposition other institution (70) | DRG 775 ==
LOC: YASAS 08:21 → Y6N 10:37 → Y3N 11:06
PROVIDERS: ADMIT Allergy & Immunology; ATTEND Allergy & Immunology
PROC: HZ2ZZZZ Detoxification Services for Substance Abuse Treatment (ICD-10-PCS; principal; 2019-04-10)
DX: F10.230 Alcohol dependence with withdrawal, uncomplicated (principal); F12.20 Cannabis dependence, uncomplicated; F17.210 Nicotine dependence, cigarettes, uncomplicated; F19.24 Other psychoactive substance dependence with psychoactive substance-induced mood disorder; F20.9 Schizophrenia, unspecified; F60.9 Personality disorder, unspecified; F39 Unspecified mood [affective] disorder; G47.00 Insomnia, unspecified; J45.20 Mild intermittent asthma, uncomplicated; Z98.84 Bariatric surgery status; Z91.040 Latex allergy status; Z91.19 Patient's noncompliance with other medical treatment and regimen
CPT/HCPCS: 36415; 80053; 82962; 85027; 86593; J2794

== ENCOUNTER 2019-04-15 11:58 | Inpatient (IN) | payer OTHER ==
[2019-04-15] MEDS ORDERED: IBUPROFEN 400 MG TABLET (FP) PO PRN (13:56)
[2019-04-15] MEDS ORDERED: P-EPHED 60MG/TRIPROLIDI 2.5MG TABLET PO PRN (13:56)
[2019-04-15] MEDS ORDERED: MAGNESIUM HYDROX 2400MG/30ML ORAL SUSPENSION 30 ML CUP PO PRN (13:56)
[2019-04-15] MEDS ORDERED: MENTHOL/PHENOL 1 EACH UD MM PRN (13:56)
[2019-04-15] MEDS ORDERED: guaiFENesin 200 MG/10 ML 10 ML UNIT-DOSE CUPS PO PRN (13:56)
[2019-04-15] MEDS ORDERED: MAG HYDROX/AL HYDROX/SIMETH 30 ML UNIT-DOSE CUP PO PRN (13:56)
[2019-04-15] MEDS ORDERED: LOPERAMIDE HCL 2 MG CAPSULE PO PRN (13:56)
[2019-04-15] MEDS ORDERED: MAGNESIUM CITRATE 300 ML BOTTLE PO PRN (13:56)
[2019-04-15] MEDS ORDERED: ACETAMINOPHEN 325 MG TABLET (FP) PO PRN (13:56)
--- NOTE | 2019-04-15 13:56 | HP ---
[facility] Rehab Assess/Revision - Admission History Admitted to Rehab from: [facility] Date of Admission to Rehab: 04/15/19 - Findings Detox History & Physical reviewed: Yes Concur with findings: Yes Comments/Additional Findings[facility] Rehab Admission - Rehab Decision to Admit Inpatient rehab admission?: Yes - Initial Determination Are CD services needed?: Yes Free of communicable disease: Yes Not in need of hospitalization: Yes - Rehab Admission Criteria Previous failed treatment: No Poor recovery environment: Yes Comorbidities: Yes Lacks judgement: No Patient is meeting Inpatient Rehab admission criteria:: Yes
--- NOTE | 2019-04-15 17:40 | CONSULT ---
[facility] Psychiatric Consult - Data Date of interview: 04/15/19 Admission source: [facility] Identifying data: Patient is a 23 year old single [place] male, without children, unemployed, domiciled (lives with mother) and is supported by family. This is patient's first admission to rehab at [facility]. Patient admitted to for alcohol and marijuana dependence. Substance Abuse History: - Smoking Cessation. Smoking history: Current every day smoker. Have you smoked in the past 12 months: Yes. Aproximately how many cigarettes per day: 6. Cigars Per Day: 0. Hx Chewing Tobacco Use: No. Initiated information on smoking cessation: Yes. 'Breaking Loose' booklet given : 04/10/19. - Substance & Tx. History. Hx Alcohol Use: Yes. Hx Substance Use : Yes. Substance Use Type: Alcohol, Marijuana. Hx Substance Use Treatment: Yes ([facility] 01/13/19 to 01/17/19). - Substances abused. Alcohol. Substance route: Oral. Frequency: Daily. Amount used: 1 bottle of vodka and 1 (12) pack of beer 16oz. Age of first use: 22. Date of last use: 04/09/19. Marijuana/Hashish. Substance route: Smoking. Frequency: 1-3 times last 30 days. Amount used: 25$. Age of first use: 19. Date of last use: 11/25/18 Medical History: Medical profile is remarkable for bronchial asthma, history of gastric bypass and herniorraphy (2017). Psychiatric History: Patient denies history of psychiatric hospitalizations and suicide attempt. Mr. Benton's first psychiatric contact occured in 2018 at a [facility] mental health clinic in the [place]. He reports seeing Dr. Matthew, was diagnosed with Mood disorder and prescribed Risperdal 1mg HS. Before admission to detox Mr. Benton did not take risperdal for three months. While in detox, patient was seen by Dr. Granda and was restarted on risperdal 1mg. Trazodone 50mg was added for insomnia but after reporting poor sleep trazodone was increased to 100mg HS. At present patient reports stable mood. Physical/Sexual Abuse/Trauma History: denies. Mental Status Exam - Mental Status Exam Alert and Oriented to: Time, Place, Person Cognitive Function: Good Patient Appearance: Well Groomed Mood: Euthymic Affect: Mood Congruent Patient Behavior: Appropriate, Cooperative Speech Pattern: Clear, Appropriate Voice Loudness: Normal Thought Process: Intact, Goal Oriented Thought Disorder: Not Present Hallucinations: Denies Suicidal Ideation: Denies Homicidal Ideation: Denies Insight/Judgement: Poor Sleep: Fair Appetite: Fair Muscle strength/Tone: Normal Gait/Station: Normal Psychiatric Findings - Problem List ([place] 1, 2,3) (1) Alcohol dependence Current Visit: Yes Status: Acute (2) Mood disorder Current Visit: Yes Status: Chronic Comment: Self reports. (3) Cannabis dependence Current Visit: Yes Status: Chronic (4) Substance-induced sleep disorder Current Visit: Yes Status: Acute - Initial Treatment Plan Initial Treatment Plan: Psychoeducation provided. Will continue Risperdal 1mg HS + Trazodone 100mg HS. Benefits and side effects discussed. Verbal consent given.
[2019-04-15] MEDS ORDERED: NICOTINE POLACRILEX 2 MG GUM BUC PRN (19:31)
[2019-04-15] MEDS: traZODone HCL 100 MG TABLET (FP) PO SCH (21:37)
[2019-04-15] MEDS: risperiDONE 1 MG TABLET (FP) PO SCH (21:37)
[2019-04-15] MEDS: hydrOXYzine PAMOATE 50 MG CAPSULE (FP) PO PRN (21:37)
[2019-04-15] MEDS: THIAMINE HCL 100 MG TABLET (FP) PO SCH (21:38)
[2019-04-16] MEDS: NICOTINE 14 MG/24 HOURS TOPICAL PATCH TD SCH (10:02)
[2019-04-16] MEDS: PRENATAL VITAMINS W/ FOLIC ACID TABLET (FP) PO SCH (10:02)
[2019-04-16] MEDS ORDERED: FLU VACCINE QUAD 60 MCG/0.5 ML (MDV 19-20) IM ONE (12:00)
[2019-04-16] MEDS: risperiDONE 1 MG TABLET (FP) PO SCH (21:25)
[2019-04-16] MEDS: hydrOXYzine PAMOATE 50 MG CAPSULE (FP) PO PRN (21:25)
[2019-04-16] MEDS: traZODone HCL 100 MG TABLET (FP) PO SCH (21:25)
[2019-04-16] MEDS: MELATONIN 5 MG TABLETS PO PRN (21:25)
[2019-04-16] MEDS: THIAMINE HCL 100 MG TABLET (FP) PO SCH (21:25)
[2019-04-17] MEDS: PRENATAL VITAMINS W/ FOLIC ACID TABLET (FP) PO SCH (10:41)
[2019-04-17] MEDS: NICOTINE 14 MG/24 HOURS TOPICAL PATCH TD SCH (10:41)
[2019-04-17] MEDS: hydrOXYzine PAMOATE 50 MG CAPSULE (FP) PO PRN (21:21)
[2019-04-17] MEDS: risperiDONE 1 MG TABLET (FP) PO SCH (21:21)
[2019-04-17] MEDS: MELATONIN 5 MG TABLETS PO PRN (21:21)
[2019-04-17] MEDS: traZODone HCL 100 MG TABLET (FP) PO SCH (21:21)
[2019-04-17] MEDS: THIAMINE HCL 100 MG TABLET (FP) PO SCH (21:21)
[2019-04-18 07:00] VITALS: BP 109/65; PULSE 79; TEMP 97.6
[2019-04-18] MEDS: PRENATAL VITAMINS W/ FOLIC ACID TABLET (FP) PO SCH (09:54)
[2019-04-18] MEDS: NICOTINE 14 MG/24 HOURS TOPICAL PATCH TD SCH (09:54)
[2019-04-18] MEDS: hydrOXYzine PAMOATE 50 MG CAPSULE (FP) PO PRN (09:54)
--- NOTE | 2019-04-18 10:59 | PN ---
[facility] Progress Note Note: [facility] Rehab Discharge Summary - [facility] Rehab Discharge Summary Admission Date: 04/15/19 Discharge Date: 04/18/19 - History Present History: Opioid dependence, Sedative dependence - Discharge Physical Exam Vital Signs: Vital Signs Temperature 97.6 F 04/18/19 06:58 Pulse Rate 65 04/18/19 06:58 Respiratory Rate 18 04/18/19 06:58 Blood Pressure 107/64 04/18/19 06:58 O2 Sat by Pulse Oximetry (%) Pertinent Admission Physical Exam Findings: Patient admitted for Opiate, cocaine and BZO dependence. For transfer today to [facility] for 28 day program. Patient is medically stable and denies SI/HI at this time. ROS: denies SI/HI, opiod cravings, chest pain, sweating, shakes and SOB PE: alert and oriented x 3 skin warm and dry +perrla eoms intact bl car s1s2 resp cta bl ext full rom, amb ad elaine no tremors - Treatment Discharge Condition: Discharge condition good Hospital Course: Patient admitted for opiate/BZO dependence on 04/15/19. Patient to be discharged to [facility] today for 28 day program. Patient attended group meetings and 1:1 sessions with counselor. States he is motivated to maintain sobriety and to continue is recovery program. Patient is medically stable and denies SI/HI. Vital Signs Temperature 97.6 F 04/18/19 06:58 Pulse Rate 65 04/18/19 06:58 Respiratory Rate 18 04/18/19 06:58 Blood Pressure 107/64 04/18/19 06:58 O2 Sat by Pulse Oximetry (%) Laboratory Tests 04/15/19 04/15/19 04/15/19 15:15 15:15 15:15 WBC 4.5 RBC 5.78 H Hgb 11.1 L Hct 35.6 MCV 61.6 L MCH 19.2 L MCHC 31.2 L RDW 16.0 H Plt Count 184 D MPV 10.2 Sodium 140 Potassium 4.6 Chloride 107 Carbon Dioxide 28 Anion Gap 5 L BUN 12.8 Creatinine 0.9 Est GFR (CKD-EPI)AfAm 134.24 Est GFR (CKD-EPI)NonAf 115.82 Random Glucose 91 Calcium 8.9 Total Bilirubin 0.5 AST 19 ALT 27 Alkaline Phosphatase 81 Total Protein 6.7 Albumin 3.8 RPR Titer Nonreactive Home Medications Medication Instructions Recorded NK [No Known Home Medication] 04/15/19 - Medication Discharge Medications: Ambulatory Orders NK [No Known Home Medication] 04/15/19 - Medication-Assisted Treatment (MAT) Medication-Assisted Treatment (MAT): No - Discharge Instructions Diet, activity, other medical instructions: Diet:regular as tolerated Activity: as tolerated Other medical instructions: follow up with pcp as recommended - Follow-up Referral Minutes to complete discharge: 30 - AMA Did Patient Leave Against Medical Advice: No
== END 2019-04-18 10:50 | disposition home or self-care (01) | DRG 772 ==
LOC: YASAS 11:58 → Y3W 12:00
PROVIDERS: ADMIT Neuromusculoskeletal Medicine & OMM; ATTEND Neuromusculoskeletal Medicine & OMM
PROC: HZ42ZZZ Group Counseling for Substance Abuse Treatment, Cognitive-Behavioral (ICD-10-PCS; principal; 2019-04-15)
DX: F10.20 Alcohol dependence, uncomplicated (principal); F13.20 Sedative, hypnotic or anxiolytic dependence, uncomplicated; F14.20 Cocaine dependence, uncomplicated; F12.20 Cannabis dependence, uncomplicated; F17.210 Nicotine dependence, cigarettes, uncomplicated; F19.282 Other psychoactive substance dependence with psychoactive substance-induced sleep disorder; F19.24 Other psychoactive substance dependence with psychoactive substance-induced mood disorder; F39 Unspecified mood [affective] disorder; J45.909 Unspecified asthma, uncomplicated; Z98.84 Bariatric surgery status; Z91.040 Latex allergy status
CPT/HCPCS: J2794; Q2036

== ENCOUNTER 2020-12-30 11:50 | Inpatient (IN) | payer OTHER ==
[2020-12-30 12:52] VITALS: BMI 35.6
[2020-12-30] MEDS ORDERED: BISMUTH SUBSALICYLATE 524 MG/30 ML PO PRN (13:32)
[2020-12-30] MEDS ORDERED: MAG HYDROX/AL HYDROX/SIMETH 30 ML UNIT-DOSE CUP PO PRN (13:32)
[2020-12-30] MEDS ORDERED: IBUPROFEN 400 MG TABLET (FP) PO PRN (13:32)
[2020-12-30] MEDS ORDERED: MENTHOL/PHENOL 1 EACH UD MM PRN (13:32)
[2020-12-30] MEDS ORDERED: ONDANSETRON *ODT* 4 MG TABLET SL PRN (13:32)
[2020-12-30] MEDS ORDERED: MAGNESIUM CITRATE 300 ML BOTTLE PO PRN (13:32)
[2020-12-30] MEDS ORDERED: MAGNESIUM HYDROX 2400MG/30ML ORAL SUSPENSION 30 ML CUP PO PRN (13:32)
[2020-12-30] MEDS ORDERED: ACETAMINOPHEN 325 MG TABLET (FP) PO PRN ×2 (13:32)
[2020-12-30] MEDS ORDERED: METHOCARBAMOL 500 MG TABLET PO PRN (13:32)
[2020-12-30] MEDS ORDERED: hydrOXYzine PAMOATE 25 MG CAPSULE (FP) PO ONE (14:19)
[2020-12-30] MEDS: hydrOXYzine PAMOATE 25 MG CAPSULE (FP) PO SCH ×3 (14:21→22:21)
[2020-12-30] MEDS: diazePAM 5 MG TABLET PO PRN (15:05)
[2020-12-30] MEDS: diazePAM 5 MG TABLET PO SCH ×2 (18:05→22:20)
[2020-12-30] MEDS: THIAMINE HCL 100 MG TABLET (FP) PO SCH (22:20)
[2020-12-30] MEDS: MELATONIN 5 MG TABLETS PO SCH (22:20)
[2020-12-31] MEDS: diazePAM 5 MG TABLET PO SCH ×4 (06:44→23:05)
[2020-12-31] MEDS: hydrOXYzine PAMOATE 25 MG CAPSULE (FP) PO SCH ×5 (06:44→23:05)
[2020-12-31] MEDS: PRENATAL VITAMINS W/ FOLIC ACID TABLET (FP) PO SCH (10:14)
[2020-12-31 11:10] LABS: HEMATOCRIT 41.7 % (35.4-49); HEMOGLOBIN 14.6 GM/dL (11.7-16.9); MCH 30.9 pg (25.7-33.7); MEAN CELL VOLUME 88.4 fl (80-96); MEAN PLT VOLUME 9.3 fl (7.5-11.1); PLATELET COUNT 269 10^3/uL (134-434); RBC 4.72 M/mm3 (4.00-5.60); RDW 14.5 % (11.9-15.9); WHITE BLOOD COUNT 5.1 K/mm3 (4.0-10.0)
[2020-12-31 11:18] LABS: ALBUMIN 3.7 g/dl (3.4-5.0); CALCIUM 8.8 mg/dL (8.5-10.1)
[2020-12-31 11:19] LABS: BLOOD UREA NITROGEN 9.9 mg/dL (7-18)
[2020-12-31 11:22] LABS: CREATININE 0.8 mg/dL (0.55-1.3)
[2020-12-31 11:23] LABS: BILIRUBIN,TOTAL 0.8 mg/dL (0.2-1); TOT PROT 7.3 g/dl (6.4-8.2)
[2020-12-31] MEDS: QUEtiapine FUMARATE 100 MG TABLET (FP) PO SCH (23:05)
[2020-12-31] MEDS: MELATONIN 5 MG TABLETS PO SCH (23:05)
[2020-12-31] MEDS: THIAMINE HCL 100 MG TABLET (FP) PO SCH (23:05)
[2021-01-01] MEDS: diazePAM 5 MG TABLET PO SCH ×3 (05:26→22:08)
[2021-01-01] MEDS: hydrOXYzine PAMOATE 25 MG CAPSULE (FP) PO SCH ×2 (05:26→10:23)
[2021-01-01] MEDS: PRENATAL VITAMINS W/ FOLIC ACID TABLET (FP) PO SCH (10:20)
[2021-01-01] MEDS: hydrOXYzine PAMOATE 25 MG CAPSULE (FP) PO PRN (10:22)
[2021-01-01 10:34] LABS: URINE APPEARANCE CLEAR; URINE BILIRUBIN NEGATIVE (NEGATIVE); URINE COLOR YELLOW; URINE GLUCOSE (UA) NEGATIVE (NEGATIVE); URINE KETONE NEGATIVE (NEGATIVE); URINE LEUK ESTERASE NEGATIVE (NEGATIVE); URINE NITRITE NEGATIVE (NEGATIVE); URINE PROTEIN NEGATIVE (NEGATIVE)
[2021-01-01] MEDS: FLUoxetine HCL 20 MG CAPSULE PO SCH (12:02)
[2021-01-01] MEDS: QUEtiapine FUMARATE 100 MG TABLET (FP) PO SCH (22:08)
[2021-01-01] MEDS: THIAMINE HCL 100 MG TABLET (FP) PO SCH (22:08)
[2021-01-01] MEDS: MELATONIN 5 MG TABLETS PO SCH (22:09)
[2021-01-02] MEDS: diazePAM 5 MG TABLET PO SCH ×2 (06:01→17:46)
[2021-01-02] MEDS: PRENATAL VITAMINS W/ FOLIC ACID TABLET (FP) PO SCH (10:09)
[2021-01-02] MEDS: FLUoxetine HCL 20 MG CAPSULE PO SCH (10:09)
[2021-01-02] MEDS: diazePAM 5 MG TABLET PO PRN (11:27)
[2021-01-02] MEDS: hydrOXYzine PAMOATE 25 MG CAPSULE (FP) PO PRN (17:46)
[2021-01-02] MEDS: QUEtiapine FUMARATE 100 MG TABLET (FP) PO SCH (22:20)
[2021-01-02] MEDS: THIAMINE HCL 100 MG TABLET (FP) PO SCH (22:20)
[2021-01-02] MEDS: MELATONIN 5 MG TABLETS PO SCH (22:21)
[2021-01-03] MEDS ORDERED: diazePAM 5 MG TABLET PO ONE (06:00)
[2021-01-03] MEDS: hydrOXYzine PAMOATE 25 MG CAPSULE (FP) PO PRN (08:55)
[2021-01-03 09:06] VITALS: BP 134/76; PULSE 74; TEMP 96.8
[2021-01-03] MEDS: FLUoxetine HCL 20 MG CAPSULE PO SCH (10:10)
[2021-01-03] MEDS: PRENATAL VITAMINS W/ FOLIC ACID TABLET (FP) PO SCH (10:10)
== END 2021-01-03 12:25 | disposition other institution (70) | DRG 774 ==
LOC: YASAS 11:50 → Y3N 14:18
PROVIDERS: ADMIT Allergy & Immunology; ATTEND Allergy & Immunology
PROC: HZ2ZZZZ Detoxification Services for Substance Abuse Treatment (ICD-10-PCS; principal; 2020-12-30)
DX: F10.230 Alcohol dependence with withdrawal, uncomplicated (principal); F14.20 Cocaine dependence, uncomplicated; F12.20 Cannabis dependence, uncomplicated; F17.210 Nicotine dependence, cigarettes, uncomplicated; F60.9 Personality disorder, unspecified; F39 Unspecified mood [affective] disorder; F19.24 Other psychoactive substance dependence with psychoactive substance-induced mood disorder; F19.282 Other psychoactive substance dependence with psychoactive substance-induced sleep disorder; K21.9 Gastro-esophageal reflux disease without esophagitis; J45.909 Unspecified asthma, uncomplicated; Z98.84 Bariatric surgery status; Z91.14 Patient's other noncompliance with medication regimen; Z91.040 Latex allergy status; Z56.0 Unemployment, unspecified
CPT/HCPCS: 36415; 80053; 81003; 85027; 86780; C9803; U0003; U0005

== ENCOUNTER 2021-01-03 12:31 | Inpatient (IN) | payer OTHER ==
[2021-01-03] MEDS ORDERED: IBUPROFEN 400 MG TABLET (FP) PO PRN (15:57)
[2021-01-03] MEDS ORDERED: LOPERAMIDE HCL 2 MG CAPSULE PO PRN (15:57)
[2021-01-03] MEDS ORDERED: MENTHOL/PHENOL 1 EACH UD MM PRN (15:57)
[2021-01-03] MEDS ORDERED: MAGNESIUM CITRATE 300 ML BOTTLE PO PRN (15:57)
[2021-01-03] MEDS ORDERED: MAG HYDROX/AL HYDROX/SIMETH 30 ML UNIT-DOSE CUP PO PRN (15:57)
[2021-01-03] MEDS ORDERED: ACETAMINOPHEN 325 MG TABLET (FP) PO PRN (15:57)
[2021-01-03] MEDS ORDERED: guaiFENesin 200 MG/10 ML 10 ML UNIT-DOSE CUPS PO PRN (15:57)
[2021-01-03] MEDS ORDERED: P-EPHED 60MG/TRIPROLIDI 2.5MG TABLET PO PRN (15:57)
[2021-01-03] MEDS ORDERED: MAGNESIUM HYDROX 2400MG/30ML ORAL SUSPENSION 30 ML CUP PO PRN (15:57)
[2021-01-03] MEDS: THIAMINE HCL 100 MG TABLET (FP) PO SCH (21:12)
[2021-01-03] MEDS: QUEtiapine FUMARATE 100 MG TABLET (FP) PO SCH (21:12)
[2021-01-03] MEDS: MELATONIN 5 MG TABLETS PO SCH (21:12)
[2021-01-03] MEDS: hydrOXYzine PAMOATE 25 MG CAPSULE (FP) PO PRN (21:12)
[2021-01-04] MEDS: FLUoxetine HCL 20 MG CAPSULE PO SCH (09:32)
[2021-01-04] MEDS: PRENATAL VITAMINS W/ FOLIC ACID TABLET (FP) PO SCH (09:32)
[2021-01-04] MEDS: hydrOXYzine PAMOATE 25 MG CAPSULE (FP) PO PRN ×2 (09:32→22:05)
[2021-01-04] MEDS: NICOTINE 7 MG/24 HOURS TOPICAL PATCH TD SCH (09:33)
[2021-01-04] MEDS: QUEtiapine FUMARATE 100 MG TABLET (FP) PO SCH (22:05)
[2021-01-04] MEDS: THIAMINE HCL 100 MG TABLET (FP) PO SCH (22:05)
[2021-01-04] MEDS: MELATONIN 5 MG TABLETS PO SCH (22:23)
[2021-01-05] MEDS: PRENATAL VITAMINS W/ FOLIC ACID TABLET (FP) PO SCH (09:46)
[2021-01-05] MEDS: NICOTINE 7 MG/24 HOURS TOPICAL PATCH TD SCH (09:47)
[2021-01-05] MEDS: FLUoxetine HCL 20 MG CAPSULE PO SCH (09:47)
[2021-01-05] MEDS: hydrOXYzine PAMOATE 25 MG CAPSULE (FP) PO PRN ×3 (09:48→21:22)
[2021-01-05] MEDS: NICOTINE 10 MG CARTRIDGE (INHALER) IH PRN ×4 (09:50→23:02)
[2021-01-05] MEDS: THIAMINE HCL 100 MG TABLET (FP) PO SCH (21:17)
[2021-01-05] MEDS: MELATONIN 5 MG TABLETS PO SCH (21:17)
[2021-01-05] MEDS: QUEtiapine FUMARATE 100 MG TABLET (FP) PO SCH (21:17)
[2021-01-06] MEDS ORDERED: PT OWN MED DRAWER 7, Y5N ONE ×2 (00:11→22:30)
[2021-01-06] MEDS: PRENATAL VITAMINS W/ FOLIC ACID TABLET (FP) PO SCH (09:37)
[2021-01-06] MEDS: NICOTINE 7 MG/24 HOURS TOPICAL PATCH TD SCH (09:37)
[2021-01-06] MEDS: NICOTINE 10 MG CARTRIDGE (INHALER) IH PRN ×4 (09:38→23:14)
[2021-01-06] MEDS: hydrOXYzine PAMOATE 25 MG CAPSULE (FP) PO PRN ×4 (09:38→21:21)
[2021-01-06] MEDS: FLUoxetine HCL 20 MG CAPSULE PO SCH (09:38)
[2021-01-06] MEDS: QUEtiapine FUMARATE 100 MG TABLET (FP) PO SCH (21:21)
[2021-01-06] MEDS: MELATONIN 5 MG TABLETS PO SCH (21:21)
[2021-01-06] MEDS: THIAMINE HCL 100 MG TABLET (FP) PO SCH (21:21)
[2021-01-07] MEDS: hydrOXYzine PAMOATE 25 MG CAPSULE (FP) PO PRN ×4 (10:02→21:30)
[2021-01-07] MEDS: PRENATAL VITAMINS W/ FOLIC ACID TABLET (FP) PO SCH (10:02)
[2021-01-07] MEDS: NICOTINE 7 MG/24 HOURS TOPICAL PATCH TD SCH (10:02)
[2021-01-07] MEDS: FLUoxetine HCL 20 MG CAPSULE PO SCH (10:02)
[2021-01-07] MEDS: NICOTINE 10 MG CARTRIDGE (INHALER) IH PRN ×4 (10:03→21:31)
[2021-01-07] MEDS: QUEtiapine FUMARATE 100 MG TABLET (FP) PO SCH (21:30)
[2021-01-07] MEDS: THIAMINE HCL 100 MG TABLET (FP) PO SCH (21:30)
[2021-01-07] MEDS: MELATONIN 5 MG TABLETS PO SCH (21:31)
[2021-01-08] MEDS: hydrOXYzine PAMOATE 25 MG CAPSULE (FP) PO PRN ×4 (09:43→21:53)
[2021-01-08] MEDS: FLUoxetine HCL 20 MG CAPSULE PO SCH (09:43)
[2021-01-08] MEDS: NICOTINE 10 MG CARTRIDGE (INHALER) IH PRN ×3 (09:43→21:53)
[2021-01-08] MEDS: PRENATAL VITAMINS W/ FOLIC ACID TABLET (FP) PO SCH (09:43)
[2021-01-08] MEDS: NICOTINE 7 MG/24 HOURS TOPICAL PATCH TD SCH (09:44)
[2021-01-08] MEDS ORDERED: PT OWN MED DRAWER 7, Y5N ONE (16:00)
[2021-01-08] MEDS: QUEtiapine FUMARATE 100 MG TABLET (FP) PO SCH (21:17)
[2021-01-08] MEDS: MELATONIN 5 MG TABLETS PO SCH (21:17)
[2021-01-08] MEDS: THIAMINE HCL 100 MG TABLET (FP) PO SCH (21:17)
[2021-01-09] MEDS: FLUoxetine HCL 20 MG CAPSULE PO SCH (10:04)
[2021-01-09] MEDS: hydrOXYzine PAMOATE 25 MG CAPSULE (FP) PO PRN ×3 (10:04→21:50)
[2021-01-09] MEDS: NICOTINE 10 MG CARTRIDGE (INHALER) IH PRN ×2 (10:04→21:50)
[2021-01-09] MEDS: PRENATAL VITAMINS W/ FOLIC ACID TABLET (FP) PO SCH (10:04)
[2021-01-09] MEDS: NICOTINE 7 MG/24 HOURS TOPICAL PATCH TD SCH (10:05)
[2021-01-09] MEDS: MELATONIN 5 MG TABLETS PO SCH (21:50)
[2021-01-09] MEDS: QUEtiapine FUMARATE 100 MG TABLET (FP) PO SCH (21:50)
[2021-01-09] MEDS: THIAMINE HCL 100 MG TABLET (FP) PO SCH (21:50)
[2021-01-10] MEDS: PRENATAL VITAMINS W/ FOLIC ACID TABLET (FP) PO SCH (09:42)
[2021-01-10] MEDS: NICOTINE 7 MG/24 HOURS TOPICAL PATCH TD SCH (09:42)
[2021-01-10] MEDS: NICOTINE 10 MG CARTRIDGE (INHALER) IH PRN (09:43)
[2021-01-10] MEDS: FLUoxetine HCL 20 MG CAPSULE PO SCH (09:43)
[2021-01-10] MEDS: hydrOXYzine PAMOATE 25 MG CAPSULE (FP) PO PRN ×3 (09:43→21:15)
[2021-01-10] MEDS: QUEtiapine FUMARATE 100 MG TABLET (FP) PO SCH (21:15)
[2021-01-10] MEDS: THIAMINE HCL 100 MG TABLET (FP) PO SCH (21:16)
[2021-01-10] MEDS: MELATONIN 5 MG TABLETS PO SCH (21:16)
[2021-01-11] MEDS: FLUoxetine HCL 20 MG CAPSULE PO SCH (09:51)
[2021-01-11] MEDS: NICOTINE 7 MG/24 HOURS TOPICAL PATCH TD SCH (09:51)
[2021-01-11] MEDS: PRENATAL VITAMINS W/ FOLIC ACID TABLET (FP) PO SCH (09:51)
[2021-01-11] MEDS: NICOTINE 10 MG CARTRIDGE (INHALER) IH PRN (09:52)
[2021-01-11] MEDS: hydrOXYzine PAMOATE 25 MG CAPSULE (FP) PO PRN ×3 (09:53→21:10)
[2021-01-11] MEDS: THIAMINE HCL 100 MG TABLET (FP) PO SCH (21:10)
[2021-01-11] MEDS: MELATONIN 5 MG TABLETS PO SCH (21:10)
[2021-01-11] MEDS: QUEtiapine FUMARATE 100 MG TABLET (FP) PO SCH (21:10)
[2021-01-12] MEDS: PRENATAL VITAMINS W/ FOLIC ACID TABLET (FP) PO SCH (09:30)
[2021-01-12] MEDS: FLUoxetine HCL 20 MG CAPSULE PO SCH (09:30)
[2021-01-12] MEDS: NICOTINE 7 MG/24 HOURS TOPICAL PATCH TD SCH (09:30)
[2021-01-12] MEDS: hydrOXYzine PAMOATE 25 MG CAPSULE (FP) PO PRN ×3 (09:31→21:07)
[2021-01-12] MEDS: THIAMINE HCL 100 MG TABLET (FP) PO SCH (21:07)
[2021-01-12] MEDS: MELATONIN 5 MG TABLETS PO SCH (21:07)
[2021-01-12] MEDS: QUEtiapine FUMARATE 100 MG TABLET (FP) PO SCH (21:07)
[2021-01-13] MEDS: FLUoxetine HCL 20 MG CAPSULE PO SCH (09:35)
[2021-01-13] MEDS: PRENATAL VITAMINS W/ FOLIC ACID TABLET (FP) PO SCH (09:35)
[2021-01-13] MEDS: hydrOXYzine PAMOATE 25 MG CAPSULE (FP) PO PRN ×3 (09:36→21:44)
[2021-01-13] MEDS: NICOTINE 10 MG CARTRIDGE (INHALER) IH PRN (09:36)
[2021-01-13] MEDS: NICOTINE 7 MG/24 HOURS TOPICAL PATCH TD SCH (09:36)
[2021-01-13] MEDS: MELATONIN 5 MG TABLETS PO SCH (21:44)
[2021-01-13] MEDS: THIAMINE HCL 100 MG TABLET (FP) PO SCH (21:44)
[2021-01-13] MEDS: QUEtiapine FUMARATE 100 MG TABLET (FP) PO SCH (21:45)
[2021-01-14] MEDS: FLUoxetine HCL 20 MG CAPSULE PO SCH (09:50)
[2021-01-14] MEDS: PRENATAL VITAMINS W/ FOLIC ACID TABLET (FP) PO SCH (09:50)
[2021-01-14] MEDS: hydrOXYzine PAMOATE 25 MG CAPSULE (FP) PO PRN ×2 (09:51→22:10)
[2021-01-14] MEDS: NICOTINE 7 MG/24 HOURS TOPICAL PATCH TD SCH (10:20)
[2021-01-14] MEDS: NICOTINE 10 MG CARTRIDGE (INHALER) IH PRN (19:11)
[2021-01-14] MEDS: THIAMINE HCL 100 MG TABLET (FP) PO SCH (22:08)
[2021-01-14] MEDS: MELATONIN 5 MG TABLETS PO SCH (22:08)
[2021-01-14] MEDS: QUEtiapine FUMARATE 100 MG TABLET (FP) PO SCH (22:08)
[2021-01-15 06:54] VITALS: BP 108/59; PULSE 69; TEMP 97.4
[2021-01-15] MEDS: PRENATAL VITAMINS W/ FOLIC ACID TABLET (FP) PO SCH (09:42)
[2021-01-15] MEDS: NICOTINE 7 MG/24 HOURS TOPICAL PATCH TD SCH (09:43)
[2021-01-15] MEDS: hydrOXYzine PAMOATE 25 MG CAPSULE (FP) PO PRN ×2 (09:44→21:25)
[2021-01-15] MEDS: FLUoxetine HCL 20 MG CAPSULE PO SCH (09:44)
[2021-01-15] MEDS: MELATONIN 5 MG TABLETS PO SCH (21:25)
[2021-01-15] MEDS: THIAMINE HCL 100 MG TABLET (FP) PO SCH (21:25)
[2021-01-15] MEDS: QUEtiapine FUMARATE 100 MG TABLET (FP) PO SCH (21:25)
[2021-01-15] MEDS: NICOTINE 10 MG CARTRIDGE (INHALER) IH PRN (21:56)
[2021-01-16] MEDS: FLUoxetine HCL 20 MG CAPSULE PO SCH (09:10)
[2021-01-16] MEDS: hydrOXYzine PAMOATE 25 MG CAPSULE (FP) PO PRN (09:10)
[2021-01-16] MEDS: PRENATAL VITAMINS W/ FOLIC ACID TABLET (FP) PO SCH (09:10)
[2021-01-16] MEDS: NICOTINE 7 MG/24 HOURS TOPICAL PATCH TD SCH (09:11)
== END 2021-01-16 09:15 | disposition home or self-care (01) | DRG 772 ==
LOC: YASAS 12:31 → Y5N 12:32
PROVIDERS: ADMIT Allergy & Immunology; ATTEND Allergy & Immunology
PROC: HZ42ZZZ Group Counseling for Substance Abuse Treatment, Cognitive-Behavioral (ICD-10-PCS; principal; 2021-01-03)
DX: F10.20 Alcohol dependence, uncomplicated (principal); F14.20 Cocaine dependence, uncomplicated; F12.20 Cannabis dependence, uncomplicated; F17.210 Nicotine dependence, cigarettes, uncomplicated; F39 Unspecified mood [affective] disorder; J45.909 Unspecified asthma, uncomplicated; K21.9 Gastro-esophageal reflux disease without esophagitis; Z98.84 Bariatric surgery status; Z91.19 Patient's noncompliance with other medical treatment and regimen; Z91.040 Latex allergy status